=== PATIENT | male | born 1950 | race African-American/Black ===

== ENCOUNTER 2022-09-06 10:08 | Inpatient (IN) | payer OTHER ==
[2022-09-06] MEDS ORDERED: VANCOMYCIN 1 GM in D5W (PRE-DOCKED) 1,000 MG/250 ML IVPB ONE (13:19)
[2022-09-06] MEDS ORDERED: PIPERACILLIN/TAZOB 4.5 GM 4.5 GM in DEXTROSE 5%-WATER 100 ML IVPB ONE (13:19)
[2022-09-06] MEDS ORDERED: CLINDAMYCIN 900 MG PREMIX IVPB 900 MG/50 ML BAG IVPB ONE ×2 (13:19→13:38)
[2022-09-06] MEDS ORDERED: PIPERACILLIN/TAZOB 4.5 GM 4.5 GM/100 ML BAG IVPB ONE (13:38)
[2022-09-06] MEDS ORDERED: VANCOMYCIN/WATER FOR INJ (PEG) 1,000 MG/200 ML BAG IVPB ONE (13:38)
[2022-09-06 13:54] LABS: BASO % 0.4 % (0-2.0); EOS % 0.3 % (0-4.5); HEMOGLOBIN 8.8 GM/dL (11.7-16.9); LYMPH % 19.7 % (8-40); MCH 27.8 pg (25.7-33.7); MCHC 32.6 g/dl (32.0-35.9); MEAN CELL VOLUME 85.1 fl (80-96); MEAN PLT VOLUME 8.1 fl (7.5-11.1); MONO % 8.5 % (3.8-10.2); NEUT % 71.1 % (42.8-82.8); PLATELET COUNT 285 10^3/uL (134-434); RBC 3.18 M/mm3 (4.00-5.60); RDW 13.5 % (11.9-15.9)
[2022-09-06 14:00] LABS: INR 1.08 (0.83-1.09); PROTHROMBIN TIME (PATIENT) 12.4 SEC (9.7-13.0)
[2022-09-06 14:02] LABS: ACTIVATED PTT 26.8 SECONDS (25.2-36.5)
[2022-09-06] MEDS ORDERED: LACTATED RINGERS SOLUTION 1000 ML INFUS.BAG IV ONE (14:04)
[2022-09-06 14:14] LABS: CALCIUM 8.7 mg/dL (8.5-10.1)
[2022-09-06 14:15] LABS: ALBUMIN 2.9 g/dl (3.4-5.0); BLOOD UREA NITROGEN 15.6 mg/dL (7-18)
[2022-09-06 14:25] LABS: BILIRUBIN,TOTAL 0.4 mg/dL (0.2-1); CREATININE 0.6 mg/dL (0.55-1.3); TOT PROT 7.3 g/dl (6.4-8.2)
[2022-09-06] MEDS ORDERED: BISACODYL 10 MG SUPP.RECT PR ONE (17:20)
[2022-09-06 17:57] LABS: EPI CELLS >36 /uL (0-25.1); HYALINE CASTS 1 /uL (0-3.1); URINE APPEARANCE CLEAR; URINE BACTERIA 42 /uL (0-1359); URINE BILIRUBIN NEGATIVE (NEGATIVE); URINE COLOR YELLOW; URINE GLUCOSE (UA) NEGATIVE (NEGATIVE); URINE KETONE NEGATIVE (NEGATIVE); URINE LEUK ESTERASE 2+ (NEGATIVE); URINE NITRITE NEGATIVE (NEGATIVE); URINE PROTEIN 1+ (NEGATIVE); URINE RBC 25 /uL (0-23.9); URINE WBC 370 /uL (0-25.8)
[2022-09-06] MEDS ORDERED: BISACODYL 10 MG SUPP.RECT ONE (18:38)
[2022-09-06] MEDS: D5-1/2NS+20 MEQ KCL - 20 MEQ/1,000 ML INFUS.BAG IV SCH (19:09)
[2022-09-06 19:18] LABS: ERYTHROCYTE SEDIMENTATION RATE 69 mm/hr (0-20)
[2022-09-06] MEDS: HEPARIN NA (PORCINE) 5,000 UNITS/ML 1ML VIAL SQ SCH (23:22)
[2022-09-06] MEDS ORDERED: HEPARIN NA (PORCINE) 5,000 UNITS/ML 1ML VIAL ONE (23:23)
[2022-09-06] MEDS ORDERED: PIPERACILLIN/TAZOB 3.375 GM 3.375 GM/50 ML BAG IVPB ONE (23:24)
[2022-09-06] MEDS: PIPERACILLIN/TAZOB 3.375 GM 3.375 GM in DEXTROSE 5%-WATER - 50 ML IVPB SCH (23:26)
[2022-09-07 03:09] VITALS: BMI 18.6
[2022-09-07] MEDS: PIPERACILLIN/TAZOB 3.375 GM 3.375 GM in DEXTROSE 5%-WATER - 50 ML IVPB SCH ×4 (06:13→21:23)
[2022-09-07 10:35] LABS: INR 1.16 (0.83-1.09); PROTHROMBIN TIME (PATIENT) 13.4 SEC (9.7-13.0)
[2022-09-07 10:37] LABS: BASO % 0.3 % (0-2.0); EOS % 0.8 % (0-4.5); HEMATOCRIT 23.6 % (35.4-49); HEMOGLOBIN 7.9 GM/dL (11.7-16.9); LYMPH % 24.4 % (8-40); MCH 28.3 pg (25.7-33.7); MCHC 33.7 g/dl (32.0-35.9); MEAN CELL VOLUME 84.2 fl (80-96); MEAN PLT VOLUME 8.2 fl (7.5-11.1); MONO % 8.8 % (3.8-10.2); NEUT % 65.7 % (42.8-82.8); PLATELET COUNT 275 10^3/uL (134-434); RDW 13.1 % (11.9-15.9)
[2022-09-07 10:57] LABS: SODIUM 144 mmol/L (136-145)
[2022-09-07 11:07] LABS: ALK PHOS 57 U/L (45-117); CREATININE 0.6 mg/dL (0.55-1.3)
[2022-09-07 11:08] LABS: ALBUMIN 2.6 g/dl (3.4-5.0); BLOOD UREA NITROGEN 9.2 mg/dL (7-18); GLUCOSE,RANDOM 95 mg/dL (74-106); SGOT/AST 18 U/L (15-37); TOTAL IRON BINDING CAPACITY 189 ug/dL (250-450)
[2022-09-07 11:09] LABS: BILIRUBIN,TOTAL 0.5 mg/dL (0.2-1); CALCIUM 8.3 mg/dL (8.5-10.1); CO2 25 mmol/L (21-32); TOT PROT 6.5 g/dl (6.4-8.2)
[2022-09-07 11:11] LABS: IRON SERUM 18 ug/dL (50-175); SGPT/ALT 18 U/L (13-61)
[2022-09-07 12:05] LABS: ANION GAP 9 MMOL/L (8-16); CHLORIDE 110 mmol/L (98-107)
[2022-09-07] MEDS: HEPARIN NA (PORCINE) 5,000 UNITS/ML 1ML VIAL SQ SCH ×2 (12:33→21:24)
[2022-09-07] MEDS ORDERED: IRON SUCROSE INJECTION 200 MG in SODIUM CHLORIDE 90 ML IVPB ONE (13:00)
[2022-09-07] MEDS: POLYETHYLENE GLYCOL (HEALTHYLAX) 3350 17 GM PACKET PO SCH ×2 (13:29→21:24)
[2022-09-07] MEDS: KCL 10 MEQ IVPB 10 MEQ/100 ML INFUS.BAG IVPB SCH ×3 (14:37→16:33)
[2022-09-07] MEDS: VANCOMYCIN/WATER FOR INJ (PEG) 1,000 MG/200 ML BAG IVPB SCH (18:11)
[2022-09-07] MEDS: POTASSIUM CHLORIDE TABS 20 MEQ TABLET.ER (FP) PO SCH (18:17)
[2022-09-07] MEDS: D5-1/2NS+20 MEQ KCL - 20 MEQ/1,000 ML INFUS.BAG IV SCH (18:21)
[2022-09-07] MEDS: CLINDAMYCIN 600MG PREMIX IVPB 600 MG/50 ML BAG IVPB SCH (20:50)
[2022-09-08] MEDS: CLINDAMYCIN 600MG PREMIX IVPB 600 MG/50 ML BAG IVPB SCH ×3 (02:12→18:23)
[2022-09-08] MEDS: D5-1/2NS+20 MEQ KCL - 20 MEQ/1,000 ML INFUS.BAG IV SCH ×2 (02:13→17:45)
[2022-09-08] MEDS: PIPERACILLIN/TAZOB 3.375 GM 3.375 GM in DEXTROSE 5%-WATER - 50 ML IVPB SCH ×3 (02:40→17:21)
[2022-09-08] MEDS: VANCOMYCIN/WATER FOR INJ (PEG) 1,000 MG/200 ML BAG IVPB SCH ×2 (05:59→14:57)
[2022-09-08] MEDS: POLYETHYLENE GLYCOL (HEALTHYLAX) 3350 17 GM PACKET PO SCH ×3 (06:21→21:14)
[2022-09-08] MEDS ORDERED: IRON SUCROSE INJECTION 200 MG in SODIUM CHLORIDE 90 ML IVPB ONE (10:00)
[2022-09-08] MEDS: POTASSIUM CHLORIDE TABS 20 MEQ TABLET.ER (FP) PO SCH (10:21)
[2022-09-08] MEDS: HEPARIN NA (PORCINE) 5,000 UNITS/ML 1ML VIAL SQ SCH ×2 (10:21→21:14)
[2022-09-08 11:31] LABS: CALCIUM 8.8 mg/dL (8.5-10.1)
[2022-09-08 11:32] LABS: ALBUMIN 2.8 g/dl (3.4-5.0); BLOOD UREA NITROGEN 6.3 mg/dL (7-18); MAGNESIUM 1.9 mg/dL (1.8-2.4)
[2022-09-08 11:34] LABS: CREATININE 0.7 mg/dL (0.55-1.3)
[2022-09-08 11:36] LABS: BILIRUBIN,TOTAL 0.4 mg/dL (0.2-1); TOT PROT 7.4 g/dl (6.4-8.2)
[2022-09-08] MEDS: LOSARTAN POTASSIUM 25 MG TABLET PO SCH (14:40)
[2022-09-09] MEDS: D5-1/2NS+20 MEQ KCL - 20 MEQ/1,000 ML INFUS.BAG IV SCH (00:22)
[2022-09-09] MEDS: PIPERACILLIN/TAZOB 3.375 GM 3.375 GM in DEXTROSE 5%-WATER - 50 ML IVPB SCH ×4 (01:20→17:26)
[2022-09-09] MEDS: CLINDAMYCIN 600MG PREMIX IVPB 600 MG/50 ML BAG IVPB SCH ×3 (02:14→17:26)
[2022-09-09] MEDS: VANCOMYCIN/WATER FOR INJ (PEG) 1,000 MG/200 ML BAG IVPB SCH ×2 (02:59→17:26)
[2022-09-09] MEDS: POLYETHYLENE GLYCOL (HEALTHYLAX) 3350 17 GM PACKET PO SCH ×3 (05:59→21:21)
[2022-09-09] MEDS ORDERED: IRON SUCROSE INJECTION 200 MG in SODIUM CHLORIDE 90 ML IVPB ONE (10:00)
[2022-09-09] MEDS: ASCORBIC ACID 500 MG TABLET (FP) PO SCH ×2 (10:17→21:21)
[2022-09-09] MEDS: HEPARIN NA (PORCINE) 5,000 UNITS/ML 1ML VIAL SQ SCH ×2 (10:18→21:21)
[2022-09-09] MEDS: ZINC SULFATE 220 MG CAPSULE (FP) PO SCH (10:18)
[2022-09-09] MEDS: POTASSIUM CHLORIDE TABS 20 MEQ TABLET.ER (FP) PO SCH (10:18)
[2022-09-09] MEDS: AMINO ACIDS/PROTEIN HYDROLYS 30 ML LIQUID.PKT PO SCH ×2 (10:18→17:32)
[2022-09-09] MEDS: MULTIVITAMINS (DAILY MVI) TABLET (FP) PO SCH (10:18)
[2022-09-09 12:38] LABS: BASO % 0.8 % (0-2.0); EOS % 1.3 % (0-4.5); HEMATOCRIT 30.1 % (35.4-49); HEMOGLOBIN 9.5 GM/dL (11.7-16.9); LYMPH % 36.4 % (8-40); MCHC 31.6 g/dl (32.0-35.9); MEAN CELL VOLUME 85.3 fl (80-96); MEAN PLT VOLUME 10.2 fl (7.5-11.1); MONO % 10.3 % (3.8-10.2); NEUT % 51.2 % (42.8-82.8); PLATELET COUNT 227 10^3/uL (134-434); RBC 3.53 M/mm3 (4.00-5.60); RDW 13.5 % (11.9-15.9); WHITE BLOOD COUNT 6.6 K/mm3 (4.0-10.0)
[2022-09-09 12:55] LABS: CALCIUM 8.9 mg/dL (8.5-10.1); MAGNESIUM 1.8 mg/dL (1.8-2.4)
[2022-09-09 12:56] LABS: ALBUMIN 2.8 g/dl (3.4-5.0)
[2022-09-09 12:58] LABS: CREATININE 0.7 mg/dL (0.55-1.3)
[2022-09-09 13:00] LABS: BILIRUBIN,TOTAL 0.4 mg/dL (0.2-1); TOT PROT 7.4 g/dl (6.4-8.2)
[2022-09-09] MEDS: LOSARTAN POTASSIUM 25 MG TABLET PO SCH (15:36)
[2022-09-09] MEDS ORDERED: DEXTROSE 5%-0.45% SALINE 1,000 ML IV SCH (17:00)
[2022-09-10] MEDS: CLINDAMYCIN 600MG PREMIX IVPB 600 MG/50 ML BAG IVPB SCH ×3 (01:01→16:59)
[2022-09-10] MEDS: PIPERACILLIN/TAZOB 3.375 GM 3.375 GM in DEXTROSE 5%-WATER - 50 ML IVPB SCH ×3 (01:40→17:00)
[2022-09-10] MEDS: VANCOMYCIN/WATER FOR INJ (PEG) 1,000 MG/200 ML BAG IVPB SCH ×2 (04:12→16:59)
[2022-09-10] MEDS: POLYETHYLENE GLYCOL (HEALTHYLAX) 3350 17 GM PACKET PO SCH ×3 (05:14→21:22)
[2022-09-10] MEDS: AMINO ACIDS/PROTEIN HYDROLYS 30 ML LIQUID.PKT PO SCH ×2 (08:07→16:59)
[2022-09-10] MEDS ORDERED: MINERAL OIL ENEMA 133 ML ENEMA RC ONE (09:04)
[2022-09-10 10:02] LABS: BASO % 0.6 % (0-2.0); EOS % 1.8 % (0-4.5); HEMATOCRIT 29.5 % (35.4-49); HEMOGLOBIN 9.5 GM/dL (11.7-16.9); LYMPH % 36.5 % (8-40); MCH 27.3 pg (25.7-33.7); MCHC 32.2 g/dl (32.0-35.9); MEAN CELL VOLUME 84.9 fl (80-96); MEAN PLT VOLUME 8.3 fl (7.5-11.1); MONO % 8.8 % (3.8-10.2); NEUT % 52.3 % (42.8-82.8); PLATELET COUNT 357 10^3/uL (134-434); RBC 3.48 M/mm3 (4.00-5.60); RDW 13.7 % (11.9-15.9); WHITE BLOOD COUNT 7.4 K/mm3 (4.0-10.0)
[2022-09-10] MEDS: MULTIVITAMINS (DAILY MVI) TABLET (FP) PO SCH (13:06)
[2022-09-10] MEDS: ZINC SULFATE 220 MG CAPSULE (FP) PO SCH (13:06)
[2022-09-10] MEDS: LOSARTAN POTASSIUM 25 MG TABLET PO SCH (13:06)
[2022-09-10] MEDS: ASCORBIC ACID 500 MG TABLET (FP) PO SCH ×2 (13:06→21:22)
[2022-09-10] MEDS: HEPARIN NA (PORCINE) 5,000 UNITS/ML 1ML VIAL SQ SCH ×2 (13:06→21:22)
[2022-09-10] MEDS: DEXTROSE 5%-0.45% SALINE 1,000 ML IV SCH (13:12)
[2022-09-11] MEDS: CLINDAMYCIN 600MG PREMIX IVPB 600 MG/50 ML BAG IVPB SCH ×2 (02:04→10:45)
[2022-09-11] MEDS: PIPERACILLIN/TAZOB 3.375 GM 3.375 GM in DEXTROSE 5%-WATER - 50 ML IVPB SCH ×3 (02:38→18:06)
[2022-09-11] MEDS: VANCOMYCIN/WATER FOR INJ (PEG) 1,000 MG/200 ML BAG IVPB SCH ×2 (03:22→16:23)
[2022-09-11] MEDS: POLYETHYLENE GLYCOL (HEALTHYLAX) 3350 17 GM PACKET PO SCH ×3 (05:33→22:29)
[2022-09-11] MEDS: MULTIVITAMINS (DAILY MVI) TABLET (FP) PO SCH (10:45)
[2022-09-11] MEDS: HEPARIN NA (PORCINE) 5,000 UNITS/ML 1ML VIAL SQ SCH ×2 (10:45→22:29)
[2022-09-11] MEDS: ZINC SULFATE 220 MG CAPSULE (FP) PO SCH (10:45)
[2022-09-11] MEDS: AMINO ACIDS/PROTEIN HYDROLYS 30 ML LIQUID.PKT PO SCH ×2 (10:45→18:07)
[2022-09-11] MEDS: ASCORBIC ACID 500 MG TABLET (FP) PO SCH ×2 (10:46→22:29)
[2022-09-11] MEDS: LOSARTAN POTASSIUM 25 MG TABLET PO SCH (10:46)
[2022-09-11 12:07] LABS: HEMATOCRIT 26.8 % (35.4-49); HEMOGLOBIN 8.8 GM/dL (11.7-16.9); MCH 28.1 pg (25.7-33.7); MCHC 32.9 g/dl (32.0-35.9); MEAN CELL VOLUME 85.3 fl (80-96); MEAN PLT VOLUME 9.2 fl (7.5-11.1); PLATELET COUNT 298 10^3/uL (134-434); RBC 3.14 M/mm3 (4.00-5.60); RDW 14.2 % (11.9-15.9)
[2022-09-11 12:38] LABS: ALBUMIN 2.6 g/dl (3.4-5.0); BLOOD UREA NITROGEN 9.7 mg/dL (7-18); CALCIUM 8.8 mg/dL (8.5-10.1)
[2022-09-11 12:42] LABS: CREATININE 0.7 mg/dL (0.55-1.3)
[2022-09-11 12:43] LABS: BILIRUBIN,TOTAL 0.5 mg/dL (0.2-1)
[2022-09-11 12:45] LABS: ANISOCYTOSIS 0; HELMET CELLS 0; HOWELL-JOLLY BODIES 0; MACROCYTOSIS 0; OVALOCYTE 0; ROULEAU 0; SICKELED CELLS 0; TARGET CELLS 0; TEAR DROP CELLS 0; TOXIC GRANULATION 0
[2022-09-11] MEDS: DEXTROSE 5%-0.45% SALINE 1,000 ML IV SCH (14:30)
[2022-09-11] MEDS: LINEZOLID 600 MG PREMIX BAG 600 MG in PREMIX 300 IVPB SCH (18:56)
[2022-09-12] MEDS: PIPERACILLIN/TAZOB 3.375 GM 3.375 GM in DEXTROSE 5%-WATER - 50 ML IVPB SCH ×3 (02:07→17:16)
[2022-09-12] MEDS: LINEZOLID 600 MG PREMIX BAG 600 MG in PREMIX 300 IVPB SCH ×2 (05:33→16:45)
[2022-09-12] MEDS: POLYETHYLENE GLYCOL (HEALTHYLAX) 3350 17 GM PACKET PO SCH ×3 (05:33→22:26)
[2022-09-12] MEDS: ZINC SULFATE 220 MG CAPSULE (FP) PO SCH (10:14)
[2022-09-12] MEDS: HEPARIN NA (PORCINE) 5,000 UNITS/ML 1ML VIAL SQ SCH ×2 (10:14→22:25)
[2022-09-12] MEDS: MULTIVITAMINS (DAILY MVI) TABLET (FP) PO SCH (10:14)
[2022-09-12] MEDS: ASCORBIC ACID 500 MG TABLET (FP) PO SCH ×2 (10:14→22:25)
[2022-09-12] MEDS: LOSARTAN POTASSIUM 25 MG TABLET PO SCH (10:14)
[2022-09-12] MEDS: AMINO ACIDS/PROTEIN HYDROLYS 30 ML LIQUID.PKT PO SCH ×2 (10:14→16:45)
[2022-09-12 10:33] LABS: CALCIUM 8.9 mg/dL (8.5-10.1)
[2022-09-12 10:34] LABS: ALBUMIN 2.8 g/dl (3.4-5.0); BLOOD UREA NITROGEN 12.4 mg/dL (7-18)
[2022-09-12 10:37] LABS: CREATININE 0.7 mg/dL (0.55-1.3)
[2022-09-12 10:38] LABS: TOT PROT 6.9 g/dl (6.4-8.2)
[2022-09-12 10:39] LABS: BILIRUBIN,TOTAL 0.4 mg/dL (0.2-1)
[2022-09-12 11:35] LABS: HEMATOCRIT 26.8 % (35.4-49); HEMOGLOBIN 8.6 GM/dL (11.7-16.9); MCH 27.5 pg (25.7-33.7); MCHC 32.2 g/dl (32.0-35.9); MEAN CELL VOLUME 85.4 fl (80-96); MEAN PLT VOLUME 9.1 fl (7.5-11.1); PLATELET COUNT 332 10^3/uL (134-434); RBC 3.13 M/mm3 (4.00-5.60); WHITE BLOOD COUNT 8.6 K/mm3 (4.0-10.0)
[2022-09-12] MEDS: COLLAGENASE CLOSTRIDIUM HIST. 30 GRAMS TUBE TP SCH (20:00)
[2022-09-13] MEDS: PIPERACILLIN/TAZOB 3.375 GM 3.375 GM in DEXTROSE 5%-WATER - 50 ML IVPB SCH ×3 (01:56→17:05)
[2022-09-13] MEDS: LINEZOLID 600 MG PREMIX BAG 600 MG in PREMIX 300 IVPB SCH ×2 (06:01→18:43)
[2022-09-13] MEDS: POLYETHYLENE GLYCOL (HEALTHYLAX) 3350 17 GM PACKET PO SCH ×3 (06:02→22:25)
[2022-09-13] MEDS: AMINO ACIDS/PROTEIN HYDROLYS 30 ML LIQUID.PKT PO SCH ×2 (09:24→17:05)
[2022-09-13] MEDS: LOSARTAN POTASSIUM 25 MG TABLET PO SCH (09:25)
[2022-09-13] MEDS: MULTIVITAMINS (DAILY MVI) TABLET (FP) PO SCH (09:25)
[2022-09-13] MEDS: ZINC SULFATE 220 MG CAPSULE (FP) PO SCH (09:25)
[2022-09-13] MEDS: ASCORBIC ACID 500 MG TABLET (FP) PO SCH ×2 (09:26→22:25)
[2022-09-13] MEDS: HEPARIN NA (PORCINE) 5,000 UNITS/ML 1ML VIAL SQ SCH (09:28)
[2022-09-13] MEDS: COLLAGENASE CLOSTRIDIUM HIST. 30 GRAMS TUBE TP SCH (15:12)
[2022-09-14] MEDS: ACETAMINOPHEN 325 MG TABLET (FP) PO PRN (00:51)
[2022-09-14] MEDS: PIPERACILLIN/TAZOB 3.375 GM 3.375 GM in DEXTROSE 5%-WATER - 50 ML IVPB SCH ×2 (02:04→11:03)
[2022-09-14] MEDS: LINEZOLID 600 MG PREMIX BAG 600 MG in PREMIX 300 IVPB SCH (05:31)
[2022-09-14] MEDS: POLYETHYLENE GLYCOL (HEALTHYLAX) 3350 17 GM PACKET PO SCH ×3 (05:31→23:08)
[2022-09-14 10:14] LABS: HEMATOCRIT 27.5 % (35.4-49); MCH 28.4 pg (25.7-33.7); MCHC 32.9 g/dl (32.0-35.9); MEAN CELL VOLUME 86.4 fl (80-96); MEAN PLT VOLUME 8.6 fl (7.5-11.1); PLATELET COUNT 310 10^3/uL (134-434); RBC 3.18 M/mm3 (4.00-5.60); RDW 14.7 % (11.9-15.9); WHITE BLOOD COUNT 7.8 K/mm3 (4.0-10.0)
[2022-09-14] MEDS: LOSARTAN POTASSIUM 25 MG TABLET PO SCH (11:01)
[2022-09-14] MEDS: ASCORBIC ACID 500 MG TABLET (FP) PO SCH ×2 (11:01→23:08)
[2022-09-14] MEDS: MULTIVITAMINS (DAILY MVI) TABLET (FP) PO SCH (11:01)
[2022-09-14] MEDS: COLLAGENASE CLOSTRIDIUM HIST. 30 GRAMS TUBE TP SCH (11:01)
[2022-09-14] MEDS: ZINC SULFATE 220 MG CAPSULE (FP) PO SCH (11:01)
[2022-09-14] MEDS: AMINO ACIDS/PROTEIN HYDROLYS 30 ML LIQUID.PKT PO SCH ×2 (11:01→17:14)
[2022-09-14 11:09] LABS: ALBUMIN 3.1 g/dl (3.4-5.0); CALCIUM 9.1 mg/dL (8.5-10.1)
[2022-09-14 11:13] LABS: BILIRUBIN,TOTAL 0.4 mg/dL (0.2-1); BLOOD UREA NITROGEN 15.2 mg/dL (7-18); TOT PROT 7.6 g/dl (6.4-8.2)
[2022-09-14 11:16] LABS: CREATININE 0.9 mg/dL (0.55-1.3)
[2022-09-14] MEDS: LINEZOLID 600 MG TABLET (RESTRICTED TO ID) PO SCH (23:08)
[2022-09-15] MEDS: POLYETHYLENE GLYCOL (HEALTHYLAX) 3350 17 GM PACKET PO SCH ×3 (08:08→21:15)
[2022-09-15] MEDS: AMINO ACIDS/PROTEIN HYDROLYS 30 ML LIQUID.PKT PO SCH ×2 (10:08→16:38)
[2022-09-15] MEDS: MULTIVITAMINS (DAILY MVI) TABLET (FP) PO SCH (10:08)
[2022-09-15] MEDS: LOSARTAN POTASSIUM 25 MG TABLET PO SCH (10:08)
[2022-09-15] MEDS: ZINC SULFATE 220 MG CAPSULE (FP) PO SCH (10:08)
[2022-09-15] MEDS: LINEZOLID 600 MG TABLET (RESTRICTED TO ID) PO SCH ×2 (10:08→21:15)
[2022-09-15] MEDS: ASCORBIC ACID 500 MG TABLET (FP) PO SCH ×2 (10:08→21:12)
[2022-09-15] MEDS: COLLAGENASE CLOSTRIDIUM HIST. 30 GRAMS TUBE TP SCH (11:30)
[2022-09-15] MEDS: ACETAMINOPHEN 325 MG TABLET (FP) PO PRN (21:12)
[2022-09-16] MEDS: POLYETHYLENE GLYCOL (HEALTHYLAX) 3350 17 GM PACKET PO SCH ×3 (06:04→21:36)
[2022-09-16] MEDS: ACETAMINOPHEN 325 MG TABLET (FP) PO PRN ×2 (06:04→21:37)
[2022-09-16] MEDS: MULTIVITAMINS (DAILY MVI) TABLET (FP) PO SCH (09:04)
[2022-09-16] MEDS: ASCORBIC ACID 500 MG TABLET (FP) PO SCH ×2 (09:04→21:37)
[2022-09-16] MEDS: ZINC SULFATE 220 MG CAPSULE (FP) PO SCH (09:04)
[2022-09-16] MEDS: LINEZOLID 600 MG TABLET (RESTRICTED TO ID) PO SCH ×2 (09:04→21:37)
[2022-09-16] MEDS: AMINO ACIDS/PROTEIN HYDROLYS 30 ML LIQUID.PKT PO SCH ×2 (09:04→16:40)
[2022-09-16] MEDS: LOSARTAN POTASSIUM 25 MG TABLET PO SCH (09:05)
[2022-09-16] MEDS: COLLAGENASE CLOSTRIDIUM HIST. 30 GRAMS TUBE TP SCH (12:07)
[2022-09-16] MEDS: MINERAL OIL/PET HY-PHL TOPICAL OINTMENT 454 GM JAR TP SCH (17:37)
[2022-09-17] MEDS: POLYETHYLENE GLYCOL (HEALTHYLAX) 3350 17 GM PACKET PO SCH ×2 (05:51→13:36)
[2022-09-17 07:38] VITALS: RESP 20
[2022-09-17] MEDS: AMINO ACIDS/PROTEIN HYDROLYS 30 ML LIQUID.PKT PO SCH ×2 (09:02→17:16)
[2022-09-17] MEDS: MULTIVITAMINS (DAILY MVI) TABLET (FP) PO SCH (09:02)
[2022-09-17] MEDS: LINEZOLID 600 MG TABLET (RESTRICTED TO ID) PO SCH (09:03)
[2022-09-17] MEDS: MINERAL OIL/PET HY-PHL TOPICAL OINTMENT 454 GM JAR TP SCH (09:03)
[2022-09-17] MEDS: LOSARTAN POTASSIUM 25 MG TABLET PO SCH (09:03)
[2022-09-17] MEDS: ZINC SULFATE 220 MG CAPSULE (FP) PO SCH (09:03)
[2022-09-17] MEDS: COLLAGENASE CLOSTRIDIUM HIST. 30 GRAMS TUBE TP SCH (09:03)
[2022-09-17] MEDS: ASCORBIC ACID 500 MG TABLET (FP) PO SCH (09:03)
[2022-09-17 10:10] LABS: HEMATOCRIT 26.5 % (35.4-49); HEMOGLOBIN 8.4 GM/dL (11.7-16.9); MCHC 31.9 g/dl (32.0-35.9); MEAN PLT VOLUME 8.6 fl (7.5-11.1); PLATELET COUNT 276 10^3/uL (134-434); RBC 3.01 M/mm3 (4.00-5.60); RDW 15.8 % (11.9-15.9); WHITE BLOOD COUNT 5.8 K/mm3 (4.0-10.0)
[2022-09-17 11:27] LABS: CALCIUM 8.9 mg/dL (8.5-10.1)
[2022-09-17 11:28] LABS: ALBUMIN 2.8 g/dl (3.4-5.0); MAGNESIUM 2.3 mg/dL (1.8-2.4)
[2022-09-17 11:31] LABS: CREATININE 0.7 mg/dL (0.55-1.3)
[2022-09-17 11:32] LABS: BILIRUBIN,TOTAL 0.5 mg/dL (0.2-1)
[2022-09-17 11:36] LABS: BLOOD UREA NITROGEN 12.7 mg/dL (7-18)
[2022-09-17 15:28] VITALS: BP 106/61; PULSE 83; TEMP 99
== END 2022-09-17 21:10 | DRG 689 ==
LOC: JER 10:08 → JERBED 16:56 → J5S 09-07 00:42 → J8W 09-11 15:11
PROVIDERS: ADMIT Family Medicine; ATTEND Family Medicine
DX: N39.0 Urinary tract infection, site not specified (principal); L89.154 Pressure ulcer of sacral region, stage 4; R53.2 Functional quadriplegia; J90 Pleural effusion, not elsewhere classified; L03.116 Cellulitis of left lower limb; J98.11 Atelectasis; N99.512 Cystostomy malfunction; E44.0 Moderate protein-calorie malnutrition; Z68.1 Body mass index [BMI] 19.9 or less, adult; I25.10 Atherosclerotic heart disease of native coronary artery without angina pectoris; F03.90 Unspecified dementia, unspecified severity, without behavioral disturbance, psychotic disturbance, mood disturbance, and anxiety; G40.909 Epilepsy, unspecified, not intractable, without status epilepticus; H54.8 Legal blindness, as defined in USA; N45.1 Epididymitis; E87.6 Hypokalemia; K56.41 Fecal impaction; N50.89 Other specified disorders of the male genital organs; E78.5 Hyperlipidemia, unspecified; I12.9 Hypertensive chronic kidney disease with stage 1 through stage 4 chronic kidney disease, or unspecified chronic kidney disease; E11.22 Type 2 diabetes mellitus with diabetic chronic kidney disease; N18.9 Chronic kidney disease, unspecified; D64.9 Anemia, unspecified; R14.0 Abdominal distension (gaseous)
CPT/HCPCS: 0241U-QW; 36415; 71045-TC-FY; 71250-TC; 74176-TC; 76870-TC; 80048; 80053; 81003; 82607; 82728; 82746; 82962; 83540; 83550; 83605; 83735; 84439; 84443; 85025; 85027; 85610; 85651; 85730; 86140; 86850; 86900; 86901; 87040; 87086; 87186; 93005; 93010; 97161-GP; 99291; C9803-CS; J1644; J1756; U0003; U0005

== ENCOUNTER 2022-10-31 01:51 | Inpatient (IN) | payer OTHER ==
[2022-10-31 03:45] LABS: BASO % 0.7 % (0-2.0); EOS % 2.4 % (0-4.5); HEMATOCRIT 35.5 % (35.4-49); HEMOGLOBIN 11.3 GM/dL (11.7-16.9); LYMPH % 29.2 % (8-40); MCH 27.6 pg (25.7-33.7); MCHC 31.7 g/dl (32.0-35.9); MEAN CELL VOLUME 86.9 fl (80-96); MEAN PLT VOLUME 9.3 fl (7.5-11.1); NEUT % 59.7 % (42.8-82.8); PLATELET COUNT 284 10^3/uL (134-434); RBC 4.09 M/mm3 (4.00-5.60); RDW 14.7 % (11.9-15.9); WHITE BLOOD COUNT 7.2 K/mm3 (4.0-10.0)
[2022-10-31 04:10] LABS: CHLORIDE 107 mmol/L (98-107); SODIUM 139 mmol/L (136-145)
[2022-10-31 04:12] LABS: BLOOD UREA NITROGEN 19.9 mg/dL (7-18); CALCIUM 8.8 mg/dL (8.5-10.1); CO2 23 mmol/L (21-32); GLUCOSE,RANDOM 103 mg/dL (74-106); LIPASE 100 U/L (73-393)
[2022-10-31 04:15] LABS: CREATININE 0.8 mg/dL (0.55-1.3); SGOT/AST 82 U/L (15-37)
[2022-10-31 04:17] LABS: BILIRUBIN,TOTAL 0.2 mg/dL (0.2-1)
[2022-10-31 04:18] LABS: ALK PHOS 87 U/L (45-117)
[2022-10-31 04:54] LABS: ANION GAP 8 MMOL/L (8-16); SGPT/ALT 22 U/L (13-61)
[2022-10-31 06:51] LABS: ALBUMIN 3.3 g/dl (3.4-5.0); BLOOD UREA NITROGEN 20.2 mg/dL (7-18)
[2022-10-31] MEDS ORDERED: PIPERACILLIN/TAZOB 4.5 GM 4.5 GM in DEXTROSE 5%-WATER 100 ML IVPB ONE (06:52)
[2022-10-31] MEDS ORDERED: VANCOMYCIN 1 GM in D5W (PRE-DOCKED) 1,000 MG/250 ML IVPB ONE (06:52)
[2022-10-31 06:54] LABS: CREATININE 0.7 mg/dL (0.55-1.3)
[2022-10-31 06:56] LABS: BILIRUBIN,TOTAL 0.4 mg/dL (0.2-1); TOT PROT 7.7 g/dl (6.4-8.2)
[2022-10-31] MEDS ORDERED: VANCOMYCIN/WATER FOR INJ (PEG) 1,000 MG/200 ML BAG IVPB ONE (08:28)
[2022-10-31] MEDS ORDERED: PIPERACILLIN/TAZOB 4.5 GM 4.5 GM/100 ML BAG IVPB ONE (08:28)
[2022-10-31] MEDS ORDERED: LOSARTAN POTASSIUM 25 MG TABLET PO SCH (10:00)
[2022-10-31] MEDS: ASCORBIC ACID 500 MG TABLET (FP) PO SCH ×2 (12:45→21:39)
[2022-10-31] MEDS: HEPARIN NA (PORCINE) 5,000 UNITS/ML 1ML VIAL SQ SCH ×2 (15:30→21:39)
[2022-10-31] MEDS: POLYETHYLENE GLYCOL (HEALTHYLAX) 3350 17 GM PACKET PO SCH ×2 (15:35→21:39)
[2022-10-31] MEDS: AMINO ACIDS/PROTEIN HYDROLYS 30 ML LIQUID.PKT PO SCH (17:30)
[2022-10-31] MEDS: LINEZOLID 600 MG PREMIX BAG 600 MG/300 ML BAG IVPB SCH (17:31)
[2022-10-31] MEDS ORDERED: PIPERACILLIN/TAZOB 3.375 GM 3.375 GM in DEXTROSE 5%-WATER - 50 ML IVPB SCH (18:00)
[2022-10-31 18:26] VITALS: BMI 17.7
[2022-11-01] MEDS: LINEZOLID 600 MG PREMIX BAG 600 MG/300 ML BAG IVPB SCH ×2 (02:48→15:10)
[2022-11-01] MEDS: HEPARIN NA (PORCINE) 5,000 UNITS/ML 1ML VIAL SQ SCH ×3 (05:44→21:55)
[2022-11-01] MEDS: POLYETHYLENE GLYCOL (HEALTHYLAX) 3350 17 GM PACKET PO SCH ×3 (05:44→22:14)
[2022-11-01] MEDS: AMINO ACIDS/PROTEIN HYDROLYS 30 ML LIQUID.PKT PO SCH ×2 (09:00→17:48)
[2022-11-01 09:35] LABS: BASO % 0.7 % (0-2.0); EOS % 2.6 % (0-4.5); HEMOGLOBIN 10.5 GM/dL (11.7-16.9); LYMPH % 44.8 % (8-40); MCH 27.7 pg (25.7-33.7); MCHC 31.8 g/dl (32.0-35.9); MEAN CELL VOLUME 87.1 fl (80-96); NEUT % 44.9 % (42.8-82.8); PLATELET COUNT 294 10^3/uL (134-434); RBC 3.79 M/mm3 (4.00-5.60); RDW 14.5 % (11.9-15.9); WHITE BLOOD COUNT 5.8 K/mm3 (4.0-10.0)
[2022-11-01 09:56] LABS: CALCIUM 9.1 mg/dL (8.5-10.1)
[2022-11-01 09:57] LABS: ALBUMIN 3.3 g/dl (3.4-5.0); BLOOD UREA NITROGEN 17.9 mg/dL (7-18)
[2022-11-01 10:01] LABS: CREATININE 0.8 mg/dL (0.55-1.3)
[2022-11-01 10:02] LABS: BILIRUBIN,TOTAL 0.4 mg/dL (0.2-1); TOT PROT 7.6 g/dl (6.4-8.2)
[2022-11-01] MEDS: LOSARTAN POTASSIUM 50 MG TABLET PO SCH (11:49)
[2022-11-01] MEDS: ASCORBIC ACID 500 MG TABLET (FP) PO SCH ×2 (11:49→21:55)
[2022-11-01] MEDS: COLLAGENASE CLOSTRIDIUM HIST. 30 GRAMS TUBE TP SCH (15:10)
[2022-11-01] MEDS: PIPERACILLIN/TAZOB 3.375 GM 3.375 GM in DEXTROSE 5%-WATER - 50 ML IVPB SCH (17:48)
[2022-11-02] MEDS: PIPERACILLIN/TAZOB 3.375 GM 3.375 GM in DEXTROSE 5%-WATER - 50 ML IVPB SCH ×3 (02:20→17:16)
[2022-11-02] MEDS: LINEZOLID 600 MG PREMIX BAG 600 MG/300 ML BAG IVPB SCH ×2 (03:08→15:12)
[2022-11-02] MEDS: POLYETHYLENE GLYCOL (HEALTHYLAX) 3350 17 GM PACKET PO SCH ×3 (06:24→22:21)
[2022-11-02] MEDS: HEPARIN NA (PORCINE) 5,000 UNITS/ML 1ML VIAL SQ SCH ×3 (06:24→22:21)
[2022-11-02] MEDS: ASCORBIC ACID 500 MG TABLET (FP) PO SCH ×2 (09:25→22:20)
[2022-11-02] MEDS: AMINO ACIDS/PROTEIN HYDROLYS 30 ML LIQUID.PKT PO SCH ×2 (09:25→17:16)
[2022-11-02] MEDS: LOSARTAN POTASSIUM 50 MG TABLET PO SCH (09:25)
[2022-11-02] MEDS: COLLAGENASE CLOSTRIDIUM HIST. 30 GRAMS TUBE TP SCH (09:26)
[2022-11-03] MEDS: PIPERACILLIN/TAZOB 3.375 GM 3.375 GM in DEXTROSE 5%-WATER - 50 ML IVPB SCH ×3 (02:08→18:24)
[2022-11-03] MEDS: LINEZOLID 600 MG PREMIX BAG 600 MG/300 ML BAG IVPB SCH ×2 (03:46→15:20)
[2022-11-03] MEDS: ACETAMINOPHEN 325 MG TABLET (FP) PO PRN ×2 (06:50→11:52)
[2022-11-03] MEDS: POLYETHYLENE GLYCOL (HEALTHYLAX) 3350 17 GM PACKET PO SCH ×3 (06:51→22:53)
[2022-11-03] MEDS: HEPARIN NA (PORCINE) 5,000 UNITS/ML 1ML VIAL SQ SCH ×3 (06:51→22:52)
[2022-11-03] MEDS: AMINO ACIDS/PROTEIN HYDROLYS 30 ML LIQUID.PKT PO SCH ×2 (09:57→18:24)
[2022-11-03] MEDS: ASCORBIC ACID 500 MG TABLET (FP) PO SCH ×2 (09:57→22:52)
[2022-11-03] MEDS: LOSARTAN POTASSIUM 50 MG TABLET PO SCH (09:57)
[2022-11-03] MEDS: COLLAGENASE CLOSTRIDIUM HIST. 30 GRAMS TUBE TP SCH (09:58)
[2022-11-04] MEDS: PIPERACILLIN/TAZOB 3.375 GM 3.375 GM in DEXTROSE 5%-WATER - 50 ML IVPB SCH ×3 (01:46→17:41)
[2022-11-04] MEDS: LINEZOLID 600 MG PREMIX BAG 600 MG/300 ML BAG IVPB SCH ×2 (03:51→16:24)
[2022-11-04] MEDS: POLYETHYLENE GLYCOL (HEALTHYLAX) 3350 17 GM PACKET PO SCH ×3 (07:14→21:27)
[2022-11-04] MEDS: HEPARIN NA (PORCINE) 5,000 UNITS/ML 1ML VIAL SQ SCH ×3 (07:14→21:27)
[2022-11-04] MEDS: AMINO ACIDS/PROTEIN HYDROLYS 30 ML LIQUID.PKT PO SCH ×2 (09:16→17:41)
[2022-11-04] MEDS: LOSARTAN POTASSIUM 50 MG TABLET PO SCH (09:18)
[2022-11-04] MEDS: COLLAGENASE CLOSTRIDIUM HIST. 30 GRAMS TUBE TP SCH (09:18)
[2022-11-04] MEDS: ASCORBIC ACID 500 MG TABLET (FP) PO SCH ×2 (09:18→21:27)
[2022-11-05] MEDS: PIPERACILLIN/TAZOB 3.375 GM 3.375 GM in DEXTROSE 5%-WATER - 50 ML IVPB SCH ×3 (01:26→18:52)
[2022-11-05] MEDS: LINEZOLID 600 MG PREMIX BAG 600 MG/300 ML BAG IVPB SCH ×2 (03:43→15:10)
[2022-11-05] MEDS: HEPARIN NA (PORCINE) 5,000 UNITS/ML 1ML VIAL SQ SCH ×3 (06:31→21:43)
[2022-11-05] MEDS: POLYETHYLENE GLYCOL (HEALTHYLAX) 3350 17 GM PACKET PO SCH ×3 (06:31→21:43)
[2022-11-05] MEDS: LOSARTAN POTASSIUM 50 MG TABLET PO SCH (11:49)
[2022-11-05] MEDS: COLLAGENASE CLOSTRIDIUM HIST. 30 GRAMS TUBE TP SCH (11:50)
[2022-11-05] MEDS: ASCORBIC ACID 500 MG TABLET (FP) PO SCH ×2 (11:50→21:46)
[2022-11-05] MEDS: AMINO ACIDS/PROTEIN HYDROLYS 30 ML LIQUID.PKT PO SCH ×2 (11:50→18:53)
[2022-11-06] MEDS: PIPERACILLIN/TAZOB 3.375 GM 3.375 GM in DEXTROSE 5%-WATER - 50 ML IVPB SCH ×3 (01:18→17:02)
[2022-11-06] MEDS: LINEZOLID 600 MG PREMIX BAG 600 MG/300 ML BAG IVPB SCH ×2 (03:01→14:50)
[2022-11-06] MEDS: POLYETHYLENE GLYCOL (HEALTHYLAX) 3350 17 GM PACKET PO SCH ×3 (05:40→21:24)
[2022-11-06] MEDS: HEPARIN NA (PORCINE) 5,000 UNITS/ML 1ML VIAL SQ SCH ×3 (05:41→21:25)
[2022-11-06] MEDS: LOSARTAN POTASSIUM 50 MG TABLET PO SCH (09:09)
[2022-11-06] MEDS: AMINO ACIDS/PROTEIN HYDROLYS 30 ML LIQUID.PKT PO SCH ×2 (09:09→17:03)
[2022-11-06] MEDS: ASCORBIC ACID 500 MG TABLET (FP) PO SCH ×2 (09:09→21:25)
[2022-11-06] MEDS: COLLAGENASE CLOSTRIDIUM HIST. 30 GRAMS TUBE TP SCH (14:51)
[2022-11-07] MEDS: PIPERACILLIN/TAZOB 3.375 GM 3.375 GM in DEXTROSE 5%-WATER - 50 ML IVPB SCH ×3 (02:01→18:15)
[2022-11-07] MEDS: LINEZOLID 600 MG PREMIX BAG 600 MG/300 ML BAG IVPB SCH (02:54)
[2022-11-07] MEDS: POLYETHYLENE GLYCOL (HEALTHYLAX) 3350 17 GM PACKET PO SCH ×3 (06:14→22:56)
[2022-11-07] MEDS: HEPARIN NA (PORCINE) 5,000 UNITS/ML 1ML VIAL SQ SCH (06:14)
[2022-11-07] MEDS: ASCORBIC ACID 500 MG TABLET (FP) PO SCH ×2 (09:34→22:56)
[2022-11-07] MEDS: AMINO ACIDS/PROTEIN HYDROLYS 30 ML LIQUID.PKT PO SCH ×2 (09:34→18:15)
[2022-11-07] MEDS: LOSARTAN POTASSIUM 50 MG TABLET PO SCH (09:34)
[2022-11-07] MEDS: COLLAGENASE CLOSTRIDIUM HIST. 30 GRAMS TUBE TP SCH (09:35)
[2022-11-07 10:50] LABS: HEMATOCRIT 33.8 % (35.4-49); MCH 28.4 pg (25.7-33.7); MCHC 32.4 g/dl (32.0-35.9); MEAN CELL VOLUME 87.7 fl (80-96); MEAN PLT VOLUME 8.8 fl (7.5-11.1); PLATELET COUNT 269 10^3/uL (134-434); RBC 3.85 M/mm3 (4.00-5.60); RDW 15.1 % (11.9-15.9); WHITE BLOOD COUNT 4.5 K/mm3 (4.0-10.0)
[2022-11-07 11:10] LABS: CALCIUM 9.2 mg/dL (8.5-10.1)
[2022-11-07 11:11] LABS: ALBUMIN 3.4 g/dl (3.4-5.0); BLOOD UREA NITROGEN 15.6 mg/dL (7-18)
[2022-11-07 11:14] LABS: CREATININE 0.8 mg/dL (0.55-1.3)
[2022-11-07 11:16] LABS: BILIRUBIN,TOTAL 0.5 mg/dL (0.2-1); TOT PROT 7.8 g/dl (6.4-8.2)
[2022-11-08] MEDS: PIPERACILLIN/TAZOB 3.375 GM 3.375 GM in DEXTROSE 5%-WATER - 50 ML IVPB SCH ×2 (02:24→10:14)
[2022-11-08] MEDS: POLYETHYLENE GLYCOL (HEALTHYLAX) 3350 17 GM PACKET PO SCH ×2 (06:58→13:13)
[2022-11-08] MEDS: LOSARTAN POTASSIUM 50 MG TABLET PO SCH (10:13)
[2022-11-08] MEDS: COLLAGENASE CLOSTRIDIUM HIST. 30 GRAMS TUBE TP SCH (10:13)
[2022-11-08] MEDS: ASCORBIC ACID 500 MG TABLET (FP) PO SCH (10:13)
[2022-11-08] MEDS: AMINO ACIDS/PROTEIN HYDROLYS 30 ML LIQUID.PKT PO SCH ×2 (10:13→17:07)
[2022-11-08 15:15] VITALS: BP 158/94; PULSE 68; RESP 20; TEMP 98.3
[2022-11-08] MEDS ORDERED: AMOX TR/POT CLAV 500MG/125MG TABLETS (FP) PO SCH (17:30)
== END 2022-11-08 20:00 | DRG 727 ==
LOC: JER 01:51 → JERBED 08:31 → J8W 10:56
PROVIDERS: ADMIT Family Medicine; ATTEND Family Medicine
DX: N49.2 Inflammatory disorders of scrotum (principal); L89.153 Pressure ulcer of sacral region, stage 3; R53.2 Functional quadriplegia; L03.90 Cellulitis, unspecified; T83.010A Breakdown (mechanical) of cystostomy catheter, initial encounter; I44.4 Left anterior fascicular block; N21.0 Calculus in bladder; N18.9 Chronic kidney disease, unspecified; F03.90 Unspecified dementia, unspecified severity, without behavioral disturbance, psychotic disturbance, mood disturbance, and anxiety; E11.9 Type 2 diabetes mellitus without complications; Z93.59 Other cystostomy status; G35 Multiple sclerosis; G40.909 Epilepsy, unspecified, not intractable, without status epilepticus; E11.22 Type 2 diabetes mellitus with diabetic chronic kidney disease; I10 Essential (primary) hypertension; R63.4 Abnormal weight loss; H54.8 Legal blindness, as defined in USA; I25.10 Atherosclerotic heart disease of native coronary artery without angina pectoris
CPT/HCPCS: 0241U-QW; 36415; 71045-TC-FY; 74177-TC; 76870-TC; 80053; 83605; 83690; 84484; 85025; 85027; 87070; 87116; 87205; 87206; 93005; 93010; 93971; 99285-25; C9803-CS; J1644; U0003; U0005

== ENCOUNTER 2023-10-17 20:05 | Inpatient (IN) | payer OTHER ==
[2023-10-17] MEDS ORDERED: SODIUM CHLORIDE 0.9% 500 ML INFUS.BAG IV ONE (20:22)
[2023-10-17 20:38] LABS: BASO % 0.5 % (0-2.0); EOS % 0.3 % (0-4.5); HEMATOCRIT 32.9 % (35.4-49); HEMOGLOBIN 10.2 GM/dL (11.7-16.9); LYMPH % 9.2 % (8-40); MCH 26.9 pg (25.7-33.7); MCHC 30.9 g/dl (32.0-35.9); MEAN PLT VOLUME 11.1 fl (7.5-11.1); PLATELET COUNT 143 10^3/uL (134-434); RBC 3.78 M/mm3 (4.00-5.60); RDW 14.5 % (11.9-15.9); WHITE BLOOD COUNT 17.4 K/mm3 (4.0-10.0)
[2023-10-17 20:41] LABS: VENOUS O2 SATURATION 25.1 % (70-80); VENOUS PCO2 31.7 mmHg (38-52); VENOUS PH 7.36 (7.310-7.410)
[2023-10-17 20:57] LABS: CHLORIDE 120 mmol/L (98-107); SODIUM 147 mmol/L (136-145)
[2023-10-17 20:59] LABS: ALBUMIN 1.8 g/dl (3.4-5.0); CALCIUM 8.2 mg/dL (8.5-10.1); CO2 20 mmol/L (21-32); GLUCOSE,RANDOM 102 mg/dL (74-106)
[2023-10-17 21:00] LABS: BLOOD UREA NITROGEN 70.3 mg/dL (7-18)
[2023-10-17 21:02] LABS: CREATININE 1.1 mg/dL (0.55-1.3); SGOT/AST 84 U/L (15-37); SGPT/ALT 26 U/L (13-61)
[2023-10-17 21:04] LABS: BILIRUBIN,TOTAL 4.2 mg/dL (0.2-1); TOT PROT 7.9 g/dl (6.4-8.2)
[2023-10-17 21:05] LABS: ALK PHOS 97 U/L (45-117)
[2023-10-17 21:08] LABS: N-TERMINAL BNP 575.5 pg/ml (5-125)
[2023-10-17 21:20] LABS: ANISOCYTOSIS 1+; MACROCYTOSIS 0
[2023-10-17 21:51] LABS: ANION GAP 8 mmol/L (4-13); POTASSIUM 6.1 mmol/L (3.5-5.1)
[2023-10-17 22:01] LABS: INR 1.2 (0.83-1.09); PROTHROMBIN TIME (PATIENT) 13.9 SEC (9.7-13.0)
[2023-10-17 22:04] LABS: ACTIVATED PTT 26.7 SECONDS (25.2-36.5)
[2023-10-17 22:15] LABS: CHLORIDE 136 mmol/L (98-107); SODIUM 158 mmol/L (136-145)
[2023-10-17 22:17] LABS: CO2 13 mmol/L (21-32); GLUCOSE,RANDOM 60 mg/dL (74-106)
[2023-10-17 22:21] LABS: CREATININE 0.3 mg/dL (0.55-1.3)
[2023-10-17 22:34] LABS: LACTIC ACID 2.3 mmol/L (0.4-2.0)
[2023-10-17] MEDS ORDERED: VANCOMYCIN 1,000 MG in DEXTROSE 5%-WATER - 250 ML IVPB ONE (22:43)
[2023-10-17] MEDS ORDERED: PIPERACILLIN/TAZOB 4.5 GM 4.5 GM in DEXTROSE 5%-WATER 100 ML IVPB ONE (22:43)
[2023-10-17 22:47] LABS: ANION GAP 9 mmol/L (4-13); BLOOD UREA NITROGEN 41.8 mg/dL (7-18); POTASSIUM 1.8 mmol/L (3.5-5.1)
[2023-10-17] MEDS ORDERED: SODIUM PHOSPHATE/NA BIPHOS 133 ML ENEMA PR ONE (22:59)
[2023-10-17] MEDS ORDERED: PIPERACILLIN/TAZOB 4.5 GM 4.5 GM/100 ML BAG IVPB ONE (23:38)
[2023-10-17] MEDS ORDERED: LACTATED RINGERS SOLUTION 1,000 ML/1,000 ML INFUS.BAG IV SCH (23:45)
[2023-10-17] MEDS ORDERED: ACETAMINOPHEN 1000 MG/100 ML BAG IVPB ONE (23:59)
[2023-10-18] MEDS ORDERED: ACETAMINOPHEN INJECTION 100 ML IVPB ONE (00:18)
[2023-10-18 00:36] LABS: ERYTHROCYTE SEDIMENTATION RATE 83 mm/hr (0-20)
[2023-10-18 00:58] LABS: POTASSIUM 3.5 mmol/L (3.5-5.1)
[2023-10-18 01:00] LABS: CALCIUM 8.3 mg/dL (8.5-10.1)
[2023-10-18 01:01] LABS: ALBUMIN 1.6 g/dl (3.4-5.0); BLOOD UREA NITROGEN 64.9 mg/dL (7-18)
[2023-10-18 01:04] LABS: CREATININE 0.9 mg/dL (0.55-1.3)
[2023-10-18 01:05] LABS: BILIRUBIN,TOTAL 2.6 mg/dL (0.2-1); TOT PROT 6.5 g/dl (6.4-8.2)
[2023-10-18] MEDS ORDERED: VANCOMYCIN 1 GRAM (PRE-DOCKED) 1,000 MG/250 ML BAG IVPB ONE (01:07)
[2023-10-18] MEDS ORDERED: SODIUM CHLORIDE 0.9% 500 ML INFUS.BAG IV ONE ×3 (01:15→10:02)
[2023-10-18 02:15] LABS: LACTIC ACID 2.9 mmol/L (0.4-2.0)
[2023-10-18] MEDS ORDERED: ACETAMINOPHEN 1000 MG/100 ML BAG IVPB PRN (04:28)
[2023-10-18 09:01] LABS: BASO % 0.2 % (0-2.0); EOS % 0.6 % (0-4.5); HEMATOCRIT 24.6 % (35.4-49); HEMOGLOBIN 7.8 GM/dL (11.7-16.9); LYMPH % 7.1 % (8-40); MCH 27.5 pg (25.7-33.7); MCHC 31.8 g/dl (32.0-35.9); MEAN CELL VOLUME 86.3 fl (80-96); MEAN PLT VOLUME 10.4 fl (7.5-11.1); MONO % 2.8 % (3.8-10.2); NEUT % 89.3 % (42.8-82.8); PLATELET COUNT 108 10^3/uL (134-434); RBC 2.86 M/mm3 (4.00-5.60); RDW 14.4 % (11.9-15.9); WHITE BLOOD COUNT 17.7 K/mm3 (4.0-10.0)
[2023-10-18 09:14] LABS: CHLORIDE 126 mmol/L (98-107); SODIUM 152 mmol/L (136-145)
[2023-10-18 09:19] LABS: ALBUMIN 1.5 g/dl (3.4-5.0); BLOOD UREA NITROGEN 54.5 mg/dL (7-18); CALCIUM 7.8 mg/dL (8.5-10.1); CO2 19 mmol/L (21-32); GLUCOSE,RANDOM 97 mg/dL (74-106)
[2023-10-18 09:21] LABS: CREATININE 0.8 mg/dL (0.55-1.3); SGPT/ALT 22 U/L (13-61)
[2023-10-18 09:22] LABS: SGOT/AST 34 U/L (15-37)
[2023-10-18 09:23] LABS: BILIRUBIN,TOTAL 2.4 mg/dL (0.2-1); TOT PROT 6.1 g/dl (6.4-8.2)
[2023-10-18 09:24] LABS: ALK PHOS 75 U/L (45-117)
[2023-10-18 09:29] LABS: ANION GAP 6 mmol/L (4-13); POTASSIUM 2.8 mmol/L (3.5-5.1)
[2023-10-18] MEDS ORDERED: PIPERACILLIN/TAZOB 3.375 GM 3.375 GM in DEXTROSE 5%-WATER - 50 ML IVPB SCH ×2 (09:30→10:00)
[2023-10-18] MEDS ORDERED: LACTATED RINGERS SOLUTION 1,000 ML/1,000 ML INFUS.BAG IV SCH (09:46)
[2023-10-18] MEDS: POLYETHYLENE GLYCOL (HEALTHYLAX) 3350 17 GM PACKET PO SCH ×2 (10:00→22:01)
[2023-10-18] MEDS ORDERED: POLYETHYLENE GLYCOL (HEALTHYLAX) 3350 17 GM PACKET PO SCH (10:00)
[2023-10-18] MEDS ORDERED: MINERAL OIL ENEMA 133 ML ENEMA RC ONE (10:05)
[2023-10-18] MEDS ORDERED: SODIUM CHLORIDE 1,000 ML IV STA (10:14)
[2023-10-18 11:14] LABS: BILIRUBIN,DIRECT 1.8 mg/dL (0.0-0.2)
[2023-10-18] MEDS ORDERED: PIPERACILLIN/TAZOB 3.375 GM 3.375 GM/50 ML BAG IVPB ONE (12:32)
[2023-10-18] MEDS: PIPERACILLIN/TAZOB 3.375 GM 3.375 GM in DEXTROSE 5%-WATER - 50 ML IVPB SCH ×2 (12:38→17:14)
[2023-10-18] MEDS ORDERED: PANTOPRAZOLE SODIUM 40 MG VIAL IVPUSH ONE (12:49)
[2023-10-18] MEDS ORDERED: VANCOMYCIN/WATER FOR INJ (PEG) 1,000 MG/200 ML BAG IVPB SCH (14:00)
[2023-10-18] MEDS: KCL 10 MEQ IVPB 10 MEQ/100 ML INFUS.BAG IVPB SCH (15:00)
[2023-10-18] MEDS: VANCOMYCIN/WATER FOR INJ (PEG) 1,000 MG/200 ML BAG IVPB SCH (15:01)
[2023-10-18 16:11] VITALS: BMI 21.9
[2023-10-18 16:56] LABS: BASO % 0.2 % (0-2.0); EOS % 0.4 % (0-4.5); HEMATOCRIT 26.1 % (35.4-49); HEMOGLOBIN 7.9 GM/dL (11.7-16.9); LYMPH % 5.8 % (8-40); MCH 26.1 pg (25.7-33.7); MCHC 30.2 g/dl (32.0-35.9); MEAN CELL VOLUME 86.3 fl (80-96); MONO % 3.3 % (3.8-10.2); NEUT % 90.3 % (42.8-82.8); PLATELET COUNT 121 10^3/uL (134-434); RBC 3.02 M/mm3 (4.00-5.60); WHITE BLOOD COUNT 19.4 K/mm3 (4.0-10.0)
[2023-10-18 17:24] LABS: BLOOD UREA NITROGEN 43.1 mg/dL (7-18); CALCIUM 7.8 mg/dL (8.5-10.1)
[2023-10-18 17:26] LABS: ALBUMIN 1.5 g/dl (3.4-5.0)
[2023-10-18 17:27] LABS: CREATININE 0.7 mg/dL (0.55-1.3)
[2023-10-18] MEDS: D5-1/2NS+20 MEQ KCL - 20 MEQ/1,000 ML INFUS.BAG IV SCH (20:00)
[2023-10-18] MEDS: MUPIROCIN 2% TOPICAL OINTMENT FOR DECOLONIZATION NS SCH (21:41)
[2023-10-18] MEDS: CHLORHEXIDINE GLUCONATE 4% CLEANSER FOR DECOLONIZATION TP SCH (21:42)
[2023-10-19] MEDS: VANCOMYCIN/WATER FOR INJ (PEG) 1,000 MG/200 ML BAG IVPB SCH ×2 (00:30→15:05)
[2023-10-19] MEDS: PIPERACILLIN/TAZOB 3.375 GM 3.375 GM in DEXTROSE 5%-WATER - 50 ML IVPB SCH ×3 (02:41→17:47)
[2023-10-19] MEDS: D5-1/2NS+20 MEQ KCL - 20 MEQ/1,000 ML INFUS.BAG IV SCH (07:04)
[2023-10-19 07:40] LABS: EOS % 0.5 % (0-4.5); HEMATOCRIT 22.9 % (35.4-49); LYMPH % 11.1 % (8-40); MCH 26.7 pg (25.7-33.7); MCHC 30.7 g/dl (32.0-35.9); MEAN CELL VOLUME 86.8 fl (80-96); MEAN PLT VOLUME 10.9 fl (7.5-11.1); NEUT % 85.4 % (42.8-82.8); PLATELET COUNT 125 10^3/uL (134-434); RBC 2.64 M/mm3 (4.00-5.60); RDW 14.6 % (11.9-15.9); WHITE BLOOD COUNT 18.2 K/mm3 (4.0-10.0)
[2023-10-19 07:57] LABS: CHLORIDE 131 mmol/L (98-107); SODIUM 155 mmol/L (136-145)
[2023-10-19 07:59] LABS: ALBUMIN 1.3 g/dl (3.4-5.0); CALCIUM 7.4 mg/dL (8.5-10.1); CO2 17 mmol/L (21-32); GLUCOSE,RANDOM 119 mg/dL (74-106)
[2023-10-19 08:00] LABS: BLOOD UREA NITROGEN 30.8 mg/dL (7-18)
[2023-10-19 08:02] LABS: CREATININE 0.8 mg/dL (0.55-1.3); MAGNESIUM 2.5 mg/dL (1.8-2.4); PHOSPHOROUS 3.5 mg/dL (2.5-4.9); SGOT/AST 23 U/L (15-37); SGPT/ALT 20 U/L (13-61)
[2023-10-19 08:04] LABS: BILIRUBIN,TOTAL 1.4 mg/dL (0.2-1); TOT PROT 5.6 g/dl (6.4-8.2)
[2023-10-19 08:05] LABS: ALK PHOS 68 U/L (45-117)
[2023-10-19 08:42] LABS: ANION GAP 6 mmol/L (4-13); POTASSIUM 2.9 mmol/L (3.5-5.1)
[2023-10-19] MEDS: KCL 10 MEQ IVPB 10 MEQ/100 ML INFUS.BAG IVPB SCH ×3 (09:30→10:44)
[2023-10-19] MEDS: POLYETHYLENE GLYCOL (HEALTHYLAX) 3350 17 GM PACKET PO SCH ×2 (10:00→23:27)
[2023-10-19] MEDS: MUPIROCIN 2% TOPICAL OINTMENT FOR DECOLONIZATION NS SCH ×2 (10:11→22:30)
[2023-10-19] MEDS: POTASSIUM CHLORIDE 40 MEQ in DEXTROSE 5%-WATER - 1,000 ML IV SCH (11:11)
[2023-10-19 14:31] LABS: POTASSIUM 3.4 mmol/L (3.5-5.1)
[2023-10-19 14:32] LABS: CALCIUM 7.4 mg/dL (8.5-10.1)
[2023-10-19 14:33] LABS: BLOOD UREA NITROGEN 24.4 mg/dL (7-18)
[2023-10-19 14:36] LABS: CREATININE 0.8 mg/dL (0.55-1.3)
[2023-10-19] MEDS ORDERED: KCL 10 MEQ IVPB 10 MEQ/100 ML INFUS.BAG IVPB SCH (15:00)
[2023-10-19] MEDS ORDERED: ACETAMINOPHEN 1000 MG/100 ML BAG IVPB PRN (17:40)
[2023-10-19] MEDS: CHLORHEXIDINE GLUCONATE 4% CLEANSER FOR DECOLONIZATION TP SCH (23:27)
[2023-10-20] MEDS: VANCOMYCIN/WATER FOR INJ (PEG) 1,000 MG/200 ML BAG IVPB SCH ×2 (01:13→13:58)
[2023-10-20] MEDS: POTASSIUM CHLORIDE 40 MEQ in DEXTROSE 5%-WATER - 1,000 ML IV SCH (03:03)
[2023-10-20] MEDS: PIPERACILLIN/TAZOB 3.375 GM 3.375 GM in DEXTROSE 5%-WATER - 50 ML IVPB SCH ×3 (03:15→17:29)
[2023-10-20 07:33] LABS: HEMATOCRIT 23.3 % (35.4-49); HEMOGLOBIN 7.2 GM/dL (11.7-16.9); MCH 27.1 pg (25.7-33.7); MCHC 31.1 g/dl (32.0-35.9); MEAN CELL VOLUME 87.1 fl (80-96); PLATELET COUNT 139 10^3/uL (134-434); RBC 2.68 M/mm3 (4.00-5.60); RDW 14.6 % (11.9-15.9); WHITE BLOOD COUNT 22.4 K/mm3 (4.0-10.0)
[2023-10-20 07:53] LABS: POTASSIUM 3.7 mmol/L (3.5-5.1)
[2023-10-20 07:57] LABS: ALBUMIN 1.3 g/dl (3.4-5.0); BLOOD UREA NITROGEN 17.5 mg/dL (7-18); CALCIUM 7.4 mg/dL (8.5-10.1); MAGNESIUM 2.4 mg/dL (1.8-2.4)
[2023-10-20 08:00] LABS: BILIRUBIN,DIRECT 0.9 mg/dL (0.0-0.2); CREATININE 0.7 mg/dL (0.55-1.3)
[2023-10-20 08:02] LABS: BILIRUBIN,TOTAL 1.2 mg/dL (0.2-1); TOT PROT 5.8 g/dl (6.4-8.2)
[2023-10-20] MEDS: POTASSIUM CHLORIDE 20 MEQ in DEXTROSE 5%-WATER - 1,000 ML IV SCH (09:30)
[2023-10-20] MEDS: MUPIROCIN 2% TOPICAL OINTMENT FOR DECOLONIZATION NS SCH ×2 (10:52→22:32)
[2023-10-20 11:07] LABS: ANISOCYTOSIS 0; MACROCYTOSIS 0
[2023-10-20 16:51] LABS: EPI CELLS >36 /uL (0-25.1); HYALINE CASTS 5 /uL (0-3.1); PH,URINE 5.5 (5.0-8.0); URINE APPEARANCE CLOUDY; URINE BACTERIA 29 /uL (0-1359); URINE BILIRUBIN 1+ (NEGATIVE); URINE COLOR DK YELLOW; URINE GLUCOSE (UA) NEGATIVE (NEGATIVE); URINE KETONE NEGATIVE (NEGATIVE); URINE LEUK ESTERASE 1+ (NEGATIVE); URINE NITRITE NEGATIVE (NEGATIVE); URINE PROTEIN 2+ (NEGATIVE); URINE RBC 198 /uL (0-23.9); URINE UROBILINOGEN 4.0 E.U/dl mg/dL (0.2-1.0); URINE WBC 201 /uL (0-25.8)
[2023-10-20] MEDS: POLYETHYLENE GLYCOL (HEALTHYLAX) 3350 17 GM PACKET PO SCH ×2 (17:37→22:33)
[2023-10-20 19:52] LABS: URINE CRYSTALS NONE SEEN /hpf
[2023-10-20] MEDS ORDERED: ACETAMINOPHEN 1000 MG/100 ML BAG IVPB PRN (21:42)
[2023-10-20] MEDS: CHLORHEXIDINE GLUCONATE 4% CLEANSER FOR DECOLONIZATION TP SCH (22:33)
[2023-10-21] MEDS: PIPERACILLIN/TAZOB 3.375 GM 3.375 GM in DEXTROSE 5%-WATER - 50 ML IVPB SCH ×3 (01:04→20:34)
[2023-10-21] MEDS: VANCOMYCIN/WATER FOR INJ (PEG) 1,000 MG/200 ML BAG IVPB SCH ×2 (01:04→14:13)
[2023-10-21] MEDS: POTASSIUM CHLORIDE 20 MEQ in DEXTROSE 5%-WATER - 1,000 ML IV SCH ×2 (05:51→22:14)
[2023-10-21] MEDS ORDERED: DEXTROSE 50%-WATER 25 GM/50 ML DISP.SYRIN IVPUSH ONE (05:54)
[2023-10-21] MEDS ORDERED: DEXTROSE 50%-WATER 25 GM/50 ML DISP.SYRIN ONE (05:59)
[2023-10-21 07:02] LABS: BASO % 0.1 % (0-2.0); EOS % 0.8 % (0-4.5); HEMATOCRIT 21.6 % (35.4-49); LYMPH % 8.9 % (8-40); MCH 27.3 pg (25.7-33.7); MCHC 30.8 g/dl (32.0-35.9); MEAN CELL VOLUME 88.6 fl (80-96); MEAN PLT VOLUME 10.1 fl (7.5-11.1); MONO % 2.8 % (3.8-10.2); NEUT % 87.4 % (42.8-82.8); PLATELET COUNT 136 10^3/uL (134-434); RBC 2.43 M/mm3 (4.00-5.60); RDW 15.1 % (11.9-15.9); WHITE BLOOD COUNT 22.1 K/mm3 (4.0-10.0)
[2023-10-21 07:18] LABS: POTASSIUM 3.6 mmol/L (3.5-5.1)
[2023-10-21 07:19] LABS: HEMOGLOBIN 6.6 GM/dL (11.7-16.9)
[2023-10-21 07:25] LABS: ALBUMIN 1.3 g/dl (3.4-5.0); BLOOD UREA NITROGEN 14.2 mg/dL (7-18); PHOSPHOROUS 3.6 mg/dL (2.5-4.9)
[2023-10-21 07:26] LABS: TOT PROT 5.5 g/dl (6.4-8.2)
[2023-10-21 07:28] LABS: CALCIUM 7.6 mg/dL (8.5-10.1); CREATININE 0.6 mg/dL (0.55-1.3); MAGNESIUM 2.1 mg/dL (1.8-2.4)
[2023-10-21 08:56] LABS: ANISOCYTOSIS 0; MACROCYTOSIS 0
[2023-10-21] MEDS: MUPIROCIN 2% TOPICAL OINTMENT FOR DECOLONIZATION NS SCH ×2 (10:57→22:15)
[2023-10-21] MEDS: POLYETHYLENE GLYCOL (HEALTHYLAX) 3350 17 GM PACKET PO SCH ×2 (10:58→22:15)
[2023-10-21] MEDS: CHLORHEXIDINE GLUCONATE 4% CLEANSER FOR DECOLONIZATION TP SCH (22:15)
[2023-10-22] MEDS: VANCOMYCIN/WATER FOR INJ (PEG) 1,000 MG/200 ML BAG IVPB SCH ×2 (01:24→13:04)
[2023-10-22] MEDS: PIPERACILLIN/TAZOB 3.375 GM 3.375 GM in DEXTROSE 5%-WATER - 50 ML IVPB SCH ×3 (02:26→17:49)
[2023-10-22] MEDS: POTASSIUM CHLORIDE 20 MEQ in DEXTROSE 5%-WATER - 1,000 ML IV SCH ×4 (03:25→17:50)
[2023-10-22 07:26] LABS: HEMATOCRIT 27.8 % (35.4-49); MCH 28.5 pg (25.7-33.7); MCHC 32.4 g/dl (32.0-35.9); MEAN CELL VOLUME 87.8 fl (80-96); MEAN PLT VOLUME 9.5 fl (7.5-11.1); PLATELET COUNT 165 10^3/uL (134-434); RBC 3.16 M/mm3 (4.00-5.60); RDW 14.9 % (11.9-15.9); WHITE BLOOD COUNT 21.7 K/mm3 (4.0-10.0)
[2023-10-22 07:41] LABS: POTASSIUM 3.6 mmol/L (3.5-5.1)
[2023-10-22 07:45] LABS: CALCIUM 7.3 mg/dL (8.5-10.1)
[2023-10-22 07:47] LABS: ALBUMIN 1.3 g/dl (3.4-5.0); BLOOD UREA NITROGEN 9.9 mg/dL (7-18); MAGNESIUM 1.9 mg/dL (1.8-2.4)
[2023-10-22 07:49] LABS: CREATININE 0.7 mg/dL (0.55-1.3)
[2023-10-22 07:50] LABS: BILIRUBIN,TOTAL 1.4 mg/dL (0.2-1); TOT PROT 5.5 g/dl (6.4-8.2)
[2023-10-22 08:48] LABS: ANISOCYTOSIS 2+; MACROCYTOSIS 0
[2023-10-22] MEDS: MUPIROCIN 2% TOPICAL OINTMENT FOR DECOLONIZATION NS SCH ×2 (09:23→21:09)
[2023-10-22] MEDS: POLYETHYLENE GLYCOL (HEALTHYLAX) 3350 17 GM PACKET PO SCH ×2 (09:23→21:11)
[2023-10-22] MEDS: CHLORHEXIDINE GLUCONATE 4% CLEANSER FOR DECOLONIZATION TP SCH (21:09)
[2023-10-23] MEDS: VANCOMYCIN/WATER FOR INJ (PEG) 1,000 MG/200 ML BAG IVPB SCH ×2 (01:16→13:20)
[2023-10-23] MEDS: PIPERACILLIN/TAZOB 3.375 GM 3.375 GM in DEXTROSE 5%-WATER - 50 ML IVPB SCH ×3 (01:16→17:45)
[2023-10-23] MEDS: POTASSIUM CHLORIDE 20 MEQ in DEXTROSE 5%-WATER - 1,000 ML IV SCH ×3 (01:48→22:29)
[2023-10-23 07:06] LABS: BASO % 0.3 % (0-2.0); EOS % 0.6 % (0-4.5); HEMATOCRIT 26.9 % (35.4-49); HEMOGLOBIN 8.6 GM/dL (11.7-16.9); LYMPH % 12.4 % (8-40); MCH 27.9 pg (25.7-33.7); MEAN CELL VOLUME 87.1 fl (80-96); MEAN PLT VOLUME 9.6 fl (7.5-11.1); MONO % 2.8 % (3.8-10.2); NEUT % 83.9 % (42.8-82.8); PLATELET COUNT 217 10^3/uL (134-434); RBC 3.08 M/mm3 (4.00-5.60); RDW 15.6 % (11.9-15.9); WHITE BLOOD COUNT 18.7 K/mm3 (4.0-10.0)
[2023-10-23 07:34] LABS: CHLORIDE 121 mmol/L (98-107); POTASSIUM 3.4 mmol/L (3.5-5.1); SODIUM 144 mmol/L (136-145)
[2023-10-23 07:36] LABS: ALBUMIN 1.3 g/dl (3.4-5.0); ANION GAP 7 mmol/L (4-13); BLOOD UREA NITROGEN 8.4 mg/dL (7-18); CO2 16 mmol/L (21-32); GLUCOSE,RANDOM 82 mg/dL (74-106); MAGNESIUM 1.8 mg/dL (1.8-2.4)
[2023-10-23 07:40] LABS: CREATININE 0.5 mg/dL (0.55-1.3); PHOSPHOROUS 2.7 mg/dL (2.5-4.9); SGOT/AST 14 U/L (15-37); SGPT/ALT 11 U/L (13-61)
[2023-10-23 07:41] LABS: BILIRUBIN,TOTAL 1.1 mg/dL (0.2-1); TOT PROT 5.6 g/dl (6.4-8.2)
[2023-10-23 07:42] LABS: ALK PHOS 69 U/L (45-117)
[2023-10-23 07:48] LABS: CALCIUM 6.9 mg/dL (8.5-10.1)
[2023-10-23] MEDS: MUPIROCIN 2% TOPICAL OINTMENT FOR DECOLONIZATION NS SCH (09:28)
[2023-10-23] MEDS: POLYETHYLENE GLYCOL (HEALTHYLAX) 3350 17 GM PACKET PO SCH ×2 (09:29→21:40)
[2023-10-23] MEDS: CHLORHEXIDINE GLUCONATE 4% CLEANSER FOR DECOLONIZATION TP SCH (21:40)
[2023-10-23] MEDS ORDERED: LORazepam 0.5 MG TABLET PO ONE (22:45)
[2023-10-24] MEDS: PIPERACILLIN/TAZOB 3.375 GM 3.375 GM in DEXTROSE 5%-WATER - 50 ML IVPB SCH ×3 (01:06→18:11)
[2023-10-24] MEDS ORDERED: ACETAMINOPHEN 1000 MG/100 ML BAG IVPB ONE (05:28)
[2023-10-24] MEDS: POTASSIUM CHLORIDE 20 MEQ in DEXTROSE 5%-WATER - 1,000 ML IV SCH ×2 (05:54→20:15)
[2023-10-24] MEDS: VANCOMYCIN/WATER FOR INJ (PEG) 1,000 MG/200 ML BAG IVPB SCH ×2 (09:24→21:38)
[2023-10-24] MEDS: POLYETHYLENE GLYCOL (HEALTHYLAX) 3350 17 GM PACKET PO SCH ×2 (09:46→21:39)
[2023-10-24 10:00] LABS: BASO % 0.2 % (0-2.0); EOS % 0.5 % (0-4.5); HEMATOCRIT 24.4 % (35.4-49); HEMOGLOBIN 7.8 GM/dL (11.7-16.9); LYMPH % 15.1 % (8-40); MCH 27.6 pg (25.7-33.7); MCHC 31.8 g/dl (32.0-35.9); MEAN CELL VOLUME 86.8 fl (80-96); MEAN PLT VOLUME 8.9 fl (7.5-11.1); MONO % 3.7 % (3.8-10.2); NEUT % 80.5 % (42.8-82.8); PLATELET COUNT 230 10^3/uL (134-434); RBC 2.81 M/mm3 (4.00-5.60); RDW 16.3 % (11.9-15.9)
[2023-10-24 10:17] LABS: POTASSIUM 4.1 mmol/L (3.5-5.1)
[2023-10-24 10:19] LABS: ALBUMIN 1.2 g/dl (3.4-5.0); BLOOD UREA NITROGEN 8.5 mg/dL (7-18); CALCIUM 7.4 mg/dL (8.5-10.1)
[2023-10-24 10:24] LABS: BILIRUBIN,TOTAL 0.8 mg/dL (0.2-1); TOT PROT 5.4 g/dl (6.4-8.2)
[2023-10-24 10:37] LABS: CREATININE 0.6 mg/dL (0.55-1.3)
[2023-10-24 10:52] LABS: LACTIC ACID 2.2 mmol/L (0.4-2.0)
[2023-10-24] MEDS: CHLORHEXIDINE GLUCONATE 4% CLEANSER FOR DECOLONIZATION TP SCH (21:39)
[2023-10-25] MEDS: PIPERACILLIN/TAZOB 3.375 GM 3.375 GM in DEXTROSE 5%-WATER - 50 ML IVPB SCH ×3 (02:13→17:07)
[2023-10-25] MEDS: POTASSIUM CHLORIDE 20 MEQ in DEXTROSE 5%-WATER - 1,000 ML IV SCH ×4 (07:35→22:28)
[2023-10-25] MEDS ORDERED: PROPOFOL 20 ML ONE (08:06)
[2023-10-25] MEDS ORDERED: MIDAZOLAM HCL 2 MG/2 ML SINGLE DOSE VIAL ONE (08:06)
[2023-10-25] MEDS: VANCOMYCIN/WATER FOR INJ (PEG) 1,000 MG/200 ML BAG IVPB SCH ×2 (09:52→21:29)
[2023-10-25] MEDS: POLYETHYLENE GLYCOL (HEALTHYLAX) 3350 17 GM PACKET PO SCH ×2 (09:52→21:28)
[2023-10-25] MEDS ORDERED: ACETAMINOPHEN 1000 MG/100 ML BAG IVPB ONE (12:15)
[2023-10-25] MEDS: CHLORHEXIDINE GLUCONATE 4% CLEANSER FOR DECOLONIZATION TP SCH (21:29)
[2023-10-26] MEDS: PIPERACILLIN/TAZOB 3.375 GM 3.375 GM in DEXTROSE 5%-WATER - 50 ML IVPB SCH ×3 (01:22→17:46)
[2023-10-26 07:32] LABS: BASO % 0.3 % (0-2.0); EOS % 0.4 % (0-4.5); HEMATOCRIT 29.5 % (35.4-49); HEMOGLOBIN 9.7 GM/dL (11.7-16.9); LYMPH % 15.7 % (8-40); MCH 28.6 pg (25.7-33.7); MCHC 32.8 g/dl (32.0-35.9); MEAN CELL VOLUME 87.1 fl (80-96); MEAN PLT VOLUME 8.7 fl (7.5-11.1); MONO % 2.8 % (3.8-10.2); NEUT % 80.8 % (42.8-82.8); PLATELET COUNT 375 10^3/uL (134-434); RBC 3.39 M/mm3 (4.00-5.60); RDW 16.6 % (11.9-15.9); WHITE BLOOD COUNT 13.4 K/mm3 (4.0-10.0)
[2023-10-26 07:48] LABS: POTASSIUM 4.7 mmol/L (3.5-5.1)
[2023-10-26 08:02] LABS: CALCIUM 7.6 mg/dL (8.5-10.1)
[2023-10-26 08:04] LABS: ALBUMIN 1.4 g/dl (3.4-5.0); BLOOD UREA NITROGEN 6.2 mg/dL (7-18)
[2023-10-26 08:06] LABS: CREATININE 0.5 mg/dL (0.55-1.3)
[2023-10-26 08:07] LABS: BILIRUBIN,TOTAL 0.6 mg/dL (0.2-1); TOT PROT 6.4 g/dl (6.4-8.2)
[2023-10-26] MEDS: POLYETHYLENE GLYCOL (HEALTHYLAX) 3350 17 GM PACKET PO SCH ×2 (09:52→22:07)
[2023-10-26] MEDS ORDERED: ACETAMINOPHEN 1000 MG/100 ML BAG IVPB PRN (10:36)
[2023-10-26] MEDS: VANCOMYCIN/WATER FOR INJ (PEG) 1,000 MG/200 ML BAG IVPB SCH ×2 (11:25→22:07)
[2023-10-26] MEDS: POTASSIUM CHLORIDE 20 MEQ in DEXTROSE 5%-WATER - 1,000 ML IV SCH ×3 (15:21→20:50)
[2023-10-26] MEDS: CHLORHEXIDINE GLUCONATE 4% CLEANSER FOR DECOLONIZATION TP SCH (22:07)
[2023-10-27] MEDS: PIPERACILLIN/TAZOB 3.375 GM 3.375 GM in DEXTROSE 5%-WATER - 50 ML IVPB SCH ×4 (02:53→17:41)
[2023-10-27] MEDS: POTASSIUM CHLORIDE 20 MEQ in DEXTROSE 5%-WATER - 1,000 ML IV SCH (06:30)
[2023-10-27] MEDS: LACTATED RINGERS SOLUTION 1,000 ML/1,000 ML INFUS.BAG IV SCH ×3 (06:41→22:07)
[2023-10-27] MEDS: VANCOMYCIN/WATER FOR INJ (PEG) 1,000 MG/200 ML BAG IVPB SCH ×2 (09:14→22:07)
[2023-10-27] MEDS: POLYETHYLENE GLYCOL (HEALTHYLAX) 3350 17 GM PACKET PO SCH ×2 (09:14→22:07)
[2023-10-28] MEDS: PIPERACILLIN/TAZOB 3.375 GM 3.375 GM in DEXTROSE 5%-WATER - 50 ML IVPB SCH ×3 (02:39→18:44)
[2023-10-28 09:04] LABS: HEMOGLOBIN 7.8 GM/dL (11.7-16.9); MCH 28.6 pg (25.7-33.7); MCHC 32.6 g/dl (32.0-35.9); MEAN CELL VOLUME 87.7 fl (80-96); MEAN PLT VOLUME 9.3 fl (7.5-11.1); PLATELET COUNT 237 10^3/uL (134-434); RBC 2.74 M/mm3 (4.00-5.60); RDW 16.3 % (11.9-15.9); WHITE BLOOD COUNT 9.2 K/mm3 (4.0-10.0)
[2023-10-28] MEDS: POLYETHYLENE GLYCOL (HEALTHYLAX) 3350 17 GM PACKET PO SCH ×2 (13:02→23:23)
[2023-10-28] MEDS: LACTATED RINGERS SOLUTION 1,000 ML/1,000 ML INFUS.BAG IV SCH (13:12)
[2023-10-28] MEDS: VANCOMYCIN/WATER FOR INJ (PEG) 1,000 MG/200 ML BAG IVPB SCH ×2 (13:55→23:51)
[2023-10-28 16:10] LABS: ALBUMIN 1.4 g/dl (3.4-5.0); BILIRUBIN,TOTAL 0.5 mg/dL (0.2-1); BLOOD UREA NITROGEN 6.3 mg/dL (7-18); CALCIUM 7.6 mg/dL (8.5-10.1); CREATININE 0.5 mg/dL (0.55-1.3); MAGNESIUM 2.1 mg/dL (1.8-2.4); POTASSIUM 4.3 mmol/L (3.5-5.1); TOT PROT 6.1 g/dl (6.4-8.2)
[2023-10-29] MEDS: PIPERACILLIN/TAZOB 3.375 GM 3.375 GM in DEXTROSE 5%-WATER - 50 ML IVPB SCH ×3 (01:20→18:38)
[2023-10-29] MEDS: POLYETHYLENE GLYCOL (HEALTHYLAX) 3350 17 GM PACKET PO SCH ×2 (11:03→22:20)
[2023-10-29] MEDS: LACTATED RINGERS SOLUTION 1,000 ML/1,000 ML INFUS.BAG IV SCH (11:05)
[2023-10-29] MEDS: VANCOMYCIN/WATER FOR INJ (PEG) 1,000 MG/200 ML BAG IVPB SCH ×2 (11:49→22:21)
[2023-10-29] MEDS ORDERED: INSULIN (NOVOLOG) ASPART 100 UNITS/ML 10ML VIAL ONE (19:37)
[2023-10-30] MEDS: LACTATED RINGERS SOLUTION 1,000 ML/1,000 ML INFUS.BAG IV SCH ×2 (01:51→09:31)
[2023-10-30] MEDS: PIPERACILLIN/TAZOB 3.375 GM 3.375 GM in DEXTROSE 5%-WATER - 50 ML IVPB SCH ×3 (06:38→17:15)
[2023-10-30 09:27] LABS: BASO % 0.9 % (0-2.0); EOS % 1.5 % (0-4.5); HEMATOCRIT 24.4 % (35.4-49); HEMOGLOBIN 7.8 GM/dL (11.7-16.9); LYMPH % 34.9 % (8-40); MCH 28.1 pg (25.7-33.7); MCHC 32.1 g/dl (32.0-35.9); MEAN CELL VOLUME 87.5 fl (80-96); MEAN PLT VOLUME 7.3 fl (7.5-11.1); MONO % 10.4 % (3.8-10.2); NEUT % 52.3 % (42.8-82.8); PLATELET COUNT 424 10^3/uL (134-434); RBC 2.78 M/mm3 (4.00-5.60); RDW 16.4 % (11.9-15.9); WHITE BLOOD COUNT 6.2 K/mm3 (4.0-10.0)
[2023-10-30] MEDS: VANCOMYCIN/WATER FOR INJ (PEG) 1,000 MG/200 ML BAG IVPB SCH (09:30)
[2023-10-30] MEDS: POLYETHYLENE GLYCOL (HEALTHYLAX) 3350 17 GM PACKET PO SCH ×2 (09:31→22:57)
[2023-10-30 09:45] LABS: POTASSIUM 4.1 mmol/L (3.5-5.1)
[2023-10-30 09:56] LABS: CALCIUM 7.9 mg/dL (8.5-10.1)
[2023-10-30 09:57] LABS: ALBUMIN 1.5 g/dl (3.4-5.0); BLOOD UREA NITROGEN 7.9 mg/dL (7-18)
[2023-10-30 10:00] LABS: CREATININE 0.5 mg/dL (0.55-1.3)
[2023-10-30 10:02] LABS: BILIRUBIN,TOTAL 0.6 mg/dL (0.2-1); TOT PROT 6.2 g/dl (6.4-8.2)
[2023-10-31] MEDS: PIPERACILLIN/TAZOB 3.375 GM 3.375 GM in DEXTROSE 5%-WATER - 50 ML IVPB SCH ×3 (02:06→18:10)
[2023-10-31] MEDS ORDERED: FUROSEMIDE 40 MG/4 ML INJECTABLE VIAL IVPUSH ONE (11:20)
[2023-10-31] MEDS: LACTATED RINGERS SOLUTION 1,000 ML/1,000 ML INFUS.BAG IV SCH ×3 (12:53→19:49)
[2023-10-31] MEDS: POLYETHYLENE GLYCOL (HEALTHYLAX) 3350 17 GM PACKET PO SCH ×2 (12:53→22:43)
[2023-11-01] MEDS: PIPERACILLIN/TAZOB 3.375 GM 3.375 GM in DEXTROSE 5%-WATER - 50 ML IVPB SCH ×3 (01:34→18:03)
[2023-11-01] MEDS: MULTIVITAMINS (DAILY MVI) TABLET (FP) PO SCH (12:38)
[2023-11-01] MEDS: ASCORBIC ACID 250 MG TABLET (FP) PO SCH (12:38)
[2023-11-01] MEDS: ZINC SULFATE 220 MG CAPSULE (FP) PO SCH (12:38)
[2023-11-01] MEDS: POLYETHYLENE GLYCOL (HEALTHYLAX) 3350 17 GM PACKET PO SCH ×2 (12:38→21:42)
[2023-11-01 13:00] LABS: BASO % 0.7 % (0-2.0); EOS % 1.1 % (0-4.5); HEMATOCRIT 25.3 % (35.4-49); HEMOGLOBIN 8.4 GM/dL (11.7-16.9); MCH 28.7 pg (25.7-33.7); MCHC 33.2 g/dl (32.0-35.9); MEAN CELL VOLUME 86.4 fl (80-96); MEAN PLT VOLUME 7.3 fl (7.5-11.1); MONO % 9.8 % (3.8-10.2); NEUT % 66.4 % (42.8-82.8); PLATELET COUNT 453 10^3/uL (134-434); RBC 2.92 M/mm3 (4.00-5.60); RDW 16.5 % (11.9-15.9); WHITE BLOOD COUNT 6.4 K/mm3 (4.0-10.0)
[2023-11-01 13:21] LABS: POTASSIUM 4.2 mmol/L (3.5-5.1)
[2023-11-01 13:23] LABS: CALCIUM 8.5 mg/dL (8.5-10.1)
[2023-11-01 13:24] LABS: ALBUMIN 1.6 g/dl (3.4-5.0); BLOOD UREA NITROGEN 8.4 mg/dL (7-18)
[2023-11-01 13:27] LABS: CREATININE 0.5 mg/dL (0.55-1.3)
[2023-11-01 13:29] LABS: BILIRUBIN,TOTAL 0.4 mg/dL (0.2-1); TOT PROT 6.6 g/dl (6.4-8.2)
[2023-11-02] MEDS: PIPERACILLIN/TAZOB 3.375 GM 3.375 GM in DEXTROSE 5%-WATER - 50 ML IVPB SCH ×3 (01:09→17:21)
[2023-11-02] MEDS: POLYETHYLENE GLYCOL (HEALTHYLAX) 3350 17 GM PACKET PO SCH ×2 (10:30→22:13)
[2023-11-02] MEDS: ZINC SULFATE 220 MG CAPSULE (FP) PO SCH (10:31)
[2023-11-02] MEDS: MULTIVITAMINS (DAILY MVI) TABLET (FP) PO SCH (10:32)
[2023-11-02] MEDS: ASCORBIC ACID 250 MG TABLET (FP) PO SCH (10:33)
[2023-11-03] MEDS: PIPERACILLIN/TAZOB 3.375 GM 3.375 GM in DEXTROSE 5%-WATER - 50 ML IVPB SCH ×3 (02:27→17:19)
[2023-11-03] MEDS: ASCORBIC ACID 250 MG TABLET (FP) PO SCH (11:45)
[2023-11-03] MEDS: ZINC SULFATE 220 MG CAPSULE (FP) PO SCH (11:45)
[2023-11-03] MEDS: MULTIVITAMINS (DAILY MVI) TABLET (FP) PO SCH (11:45)
[2023-11-03] MEDS: POLYETHYLENE GLYCOL (HEALTHYLAX) 3350 17 GM PACKET PO SCH ×2 (11:46→23:47)
[2023-11-04] MEDS: PIPERACILLIN/TAZOB 3.375 GM 3.375 GM in DEXTROSE 5%-WATER - 50 ML IVPB SCH ×3 (02:19→17:30)
[2023-11-04 09:27] LABS: POTASSIUM 4.5 mmol/L (3.5-5.1)
[2023-11-04 09:32] LABS: CALCIUM 8.4 mg/dL (8.5-10.1)
[2023-11-04 09:33] LABS: ALBUMIN 1.9 g/dl (3.4-5.0); BLOOD UREA NITROGEN 7.7 mg/dL (7-18)
[2023-11-04 09:36] LABS: CREATININE 0.5 mg/dL (0.55-1.3)
[2023-11-04 09:38] LABS: BILIRUBIN,TOTAL 0.5 mg/dL (0.2-1); TOT PROT 7.5 g/dl (6.4-8.2)
[2023-11-04] MEDS: MULTIVITAMINS (DAILY MVI) TABLET (FP) PO SCH (11:03)
[2023-11-04] MEDS: ASCORBIC ACID 250 MG TABLET (FP) PO SCH (11:03)
[2023-11-04] MEDS: POLYETHYLENE GLYCOL (HEALTHYLAX) 3350 17 GM PACKET PO SCH ×2 (11:03→21:55)
[2023-11-04] MEDS: ZINC SULFATE 220 MG CAPSULE (FP) PO SCH (11:03)
[2023-11-05] MEDS: PIPERACILLIN/TAZOB 3.375 GM 3.375 GM in DEXTROSE 5%-WATER - 50 ML IVPB SCH ×2 (02:57→09:55)
[2023-11-05 09:49] LABS: EOS % 2.7 % (0-4.5); HEMATOCRIT 27.4 % (35.4-49); HEMOGLOBIN 9.1 GM/dL (11.7-16.9); LYMPH % 34.7 % (8-40); MCH 28.7 pg (25.7-33.7); MEAN PLT VOLUME 7.4 fl (7.5-11.1); MONO % 10.1 % (3.8-10.2); NEUT % 51.5 % (42.8-82.8); PLATELET COUNT 499 10^3/uL (134-434); RBC 3.15 M/mm3 (4.00-5.60); RDW 16.2 % (11.9-15.9); WHITE BLOOD COUNT 6.2 K/mm3 (4.0-10.0)
[2023-11-05] MEDS: ASCORBIC ACID 250 MG TABLET (FP) PO SCH (09:56)
[2023-11-05] MEDS: ZINC SULFATE 220 MG CAPSULE (FP) PO SCH (09:56)
[2023-11-05] MEDS: MULTIVITAMINS (DAILY MVI) TABLET (FP) PO SCH (09:56)
[2023-11-05] MEDS: POLYETHYLENE GLYCOL (HEALTHYLAX) 3350 17 GM PACKET PO SCH (09:57)
[2023-11-05 10:08] LABS: POTASSIUM 4.6 mmol/L (3.5-5.1)
[2023-11-05 10:11] LABS: ALBUMIN 1.8 g/dl (3.4-5.0)
[2023-11-05 10:13] LABS: CALCIUM 8.4 mg/dL (8.5-10.1)
[2023-11-05 10:14] LABS: CREATININE 0.5 mg/dL (0.55-1.3)
[2023-11-05 10:16] LABS: BILIRUBIN,TOTAL 0.5 mg/dL (0.2-1)
[2023-11-05 10:18] LABS: TOT PROT 7.4 g/dl (6.4-8.2)
[2023-11-05 13:24] VITALS: RESP 20
[2023-11-05 15:09] VITALS: TEMP 98.8
[2023-11-05 23:49] VITALS: BP 159/85; PULSE 89
[2023-11-06] MEDS: POLYETHYLENE GLYCOL (HEALTHYLAX) 3350 17 GM PACKET PO SCH (01:13)
== END 2023-11-05 23:30 | DRG 853 ==
LOC: JER 20:05 → JERBED 10-18 02:48 → JICU 10-18 12:52 → J8W 10-27 21:05
PROVIDERS: ADMIT Student in an Organized Health Care Education/Training Program; ATTEND Family Medicine
PROC: 0KBN0ZZ Excision of Right Hip Muscle, Open Approach (ICD-10-PCS; 2023-10-25)
PROC: 0KBP0ZZ Excision of Left Hip Muscle, Open Approach (ICD-10-PCS; principal; 2023-10-25 07:30)
PROC: 0T9B70Z Drainage of Bladder with Drainage Device, Via Natural or Artificial Opening (ICD-10-PCS; 2023-11-01)
PROC: BT10YZZ Fluoroscopy of Bladder using Other Contrast (ICD-10-PCS; 2023-11-01)
DX: A41.9 Sepsis, unspecified organism (principal); J18.9 Pneumonia, unspecified organism; L89.154 Pressure ulcer of sacral region, stage 4; R53.2 Functional quadriplegia; E87.0 Hyperosmolality and hypernatremia; K81.0 Acute cholecystitis; N39.0 Urinary tract infection, site not specified; I25.10 Atherosclerotic heart disease of native coronary artery without angina pectoris; G40.909 Epilepsy, unspecified, not intractable, without status epilepticus; F03.90 Unspecified dementia, unspecified severity, without behavioral disturbance, psychotic disturbance, mood disturbance, and anxiety; N18.9 Chronic kidney disease, unspecified; E87.6 Hypokalemia; E11.22 Type 2 diabetes mellitus with diabetic chronic kidney disease; I12.9 Hypertensive chronic kidney disease with stage 1 through stage 4 chronic kidney disease, or unspecified chronic kidney disease; H54.8 Legal blindness, as defined in USA; D63.8 Anemia in other chronic diseases classified elsewhere; N21.0 Calculus in bladder; N31.9 Neuromuscular dysfunction of bladder, unspecified
CPT/HCPCS: 0241U-QW; 36415; 36430; 70450-TC; 71045-TC-FY; 71250-TC; 74177-TC; 75984-FY; 76705-TC; 80048; 80053; 81003; 82248; 82272; 82550; 82553; 82803; 82962; 83605; 83690; 83735; 83880; 84100; 84443; 84484; 85025; 85027; 85610; 85651; 85730; 86140; 86850; 86900; 86901; 86922; 87040; 87070; 87186; 87205; 87635; 88304-TC; 93005; 93010; 93306-TC; 97161-GP; 99285-25; G0463; G0480; J0131; P9038; P9058; Q9967

== ENCOUNTER 2024-01-07 14:22 | Inpatient (IN) | payer OTHER ==
[2024-01-07 17:33] LABS: VENOUS BASE EXCESS 2.8 mmol/L (-2-2); VENOUS O2 SATURATION 36.2 % (70-80); VENOUS PCO2 45.5 mmHg (38-52); VENOUS PH 7.407 (7.310-7.410)
[2024-01-07 17:34] LABS: BASO % 0.6 % (0-2.0); EOS % 2.3 % (0-4.5); HEMATOCRIT 34.4 % (35.4-49); LYMPH % 36.8 % (8-40); MCH 26.4 pg (25.7-33.7); MCHC 32.1 g/dl (32.0-35.9); MEAN CELL VOLUME 82.4 fl (80-96); MEAN PLT VOLUME 7.2 fl (7.5-11.1); MONO % 7.2 % (3.8-10.2); NEUT % 53.1 % (42.8-82.8); PLATELET COUNT 520 10^3/uL (134-434); RBC 4.17 M/mm3 (4.00-5.60); RDW 15.6 % (11.9-15.9); WHITE BLOOD COUNT 7.1 K/mm3 (4.0-10.0)
[2024-01-07 17:41] LABS: INR 1.03 (0.83-1.09); PROTHROMBIN TIME (PATIENT) 11.9 SEC (9.7-13.0)
[2024-01-07 17:52] LABS: POTASSIUM 3.2 mmol/L (3.5-5.1)
[2024-01-07 17:55] LABS: ALBUMIN 2.4 g/dl (3.4-5.0); BLOOD UREA NITROGEN 10.9 mg/dL (7-18); CALCIUM 8.7 mg/dL (8.5-10.1)
[2024-01-07 17:59] LABS: BILIRUBIN,TOTAL 0.4 mg/dL (0.2-1); CREATININE 0.7 mg/dL (0.55-1.3); TOT PROT 7.8 g/dl (6.4-8.2)
[2024-01-07] MEDS ORDERED: KCL 10 MEQ IVPB 10 MEQ/100 ML INFUS.BAG IVPB ONE ×2 (18:26→23:26)
[2024-01-07] MEDS: KCL 10 MEQ IVPB 10 MEQ/100 ML INFUS.BAG IVPB SCH (18:35)
[2024-01-07] MEDS: SODIUM CHLORIDE 0.9% 500 ML INFUS.BAG IV ONE (23:35)
[2024-01-08] MEDS: KCL 10 MEQ IVPB 10 MEQ/100 ML INFUS.BAG IVPB SCH (04:30)
[2024-01-08] MEDS: INSULIN ASPART SLIDING SCALE (NOVOLOG) 1 VIAL SQ SCH (07:06)
[2024-01-08 08:39] LABS: BASO % 0.9 % (0-2.0); HEMATOCRIT 33.2 % (35.4-49); HEMOGLOBIN 10.5 GM/dL (11.7-16.9); LYMPH % 36.5 % (8-40); MCH 26.3 pg (25.7-33.7); MCHC 31.6 g/dl (32.0-35.9); MEAN PLT VOLUME 8.1 fl (7.5-11.1); MONO % 7.6 % (3.8-10.2); PLATELET COUNT 436 10^3/uL (134-434); RDW 15.5 % (11.9-15.9); WHITE BLOOD COUNT 6.3 K/mm3 (4.0-10.0)
[2024-01-08 09:01] LABS: POTASSIUM 3.6 mmol/L (3.5-5.1)
[2024-01-08 09:04] LABS: BLOOD UREA NITROGEN 9.8 mg/dL (7-18)
[2024-01-08 09:07] LABS: CALCIUM 8.6 mg/dL (8.5-10.1); CREATININE 0.5 mg/dL (0.55-1.3); MAGNESIUM 2.5 mg/dL (1.8-2.4); PHOSPHOROUS 3.4 mg/dL (2.5-4.9)
[2024-01-08] MEDS: POLYETHYLENE GLYCOL (HEALTHYLAX) 3350 17 GM PACKET PO SCH (10:38)
[2024-01-08] MEDS: ASCORBIC ACID 500 MG TABLET (FP) PO SCH (11:49)
[2024-01-08] MEDS: LOSARTAN POTASSIUM 25 MG TABLET PO SCH (11:49)
[2024-01-08] MEDS: MULTIVITAMINS (DAILY MVI) TABLET (FP) PO SCH (11:49)
[2024-01-08] MEDS: HEPARIN NA (PORCINE) 5,000 UNITS/ML 1ML VIAL SQ SCH (14:50)
[2024-01-08 15:15] VITALS: BMI 18.1
[2024-01-08] MEDS: CEFTRIAXONE 1 GM in DEXTROSE 5%-WATER - 50 ML IVPB SCH (15:50)
[2024-01-08] MEDS ORDERED: INSULIN (NOVOLOG) ASPART 100 UNITS/ML 10ML VIAL ONE (21:15)
[2024-01-08] MEDS: DONEPEZIL HCL 5 MG TABLET (FP) PO SCH (21:58)
[2024-01-09 06:16] LABS: EPI CELLS >36 /uL (0-25.1); HYALINE CASTS 33 /uL (0-3.1); PH,URINE 7.5 (5.0-8.0); URINE APPEARANCE TURBID; URINE BACTERIA 8450 /uL (0-1359); URINE BILIRUBIN NEGATIVE (NEGATIVE); URINE COLOR DK YELLOW; URINE GLUCOSE (UA) NEGATIVE (NEGATIVE); URINE KETONE NEGATIVE (NEGATIVE); URINE LEUK ESTERASE 3+ (NEGATIVE); URINE NITRITE NEGATIVE (NEGATIVE); URINE PROTEIN 3+ (NEGATIVE); URINE RBC 1982 /uL (0-23.9); URINE WBC 20536 /uL (0-25.8)
[2024-01-09 13:50] VITALS: RESP 18
[2024-01-09 17:05] VITALS: BP 110/60; PULSE 78; TEMP 97.8
== END 2024-01-09 17:30 | DRG 698 ==
LOC: JER 14:22 → JERBED 19:24 → J8W 01-08 00:50 → OBSVTOIN 01-08 14:18
PROVIDERS: ADMIT Internal Medicine; ATTEND Family Medicine
PROC: 0T2BX0Z Change Drainage Device in Bladder, External Approach (ICD-10-PCS; principal; 2024-01-09)
DX: T83.010A Breakdown (mechanical) of cystostomy catheter, initial encounter (principal); L89.154 Pressure ulcer of sacral region, stage 4; R53.2 Functional quadriplegia; E11.22 Type 2 diabetes mellitus with diabetic chronic kidney disease; G35 Multiple sclerosis; F03.90 Unspecified dementia, unspecified severity, without behavioral disturbance, psychotic disturbance, mood disturbance, and anxiety; L89.222 Pressure ulcer of left hip, stage 2; N18.9 Chronic kidney disease, unspecified; E86.0 Dehydration; Y83.9 Surgical procedure, unspecified as the cause of abnormal reaction of the patient, or of later complication, without mention of misadventure at the time of the procedure
CPT/HCPCS: 0241U-QW; 36415; 71045-TC-FY; 74177-TC; 75984-FY; 80048; 80053; 81003; 82803; 82962; 83605; 83735; 84100; 84484; 85025; 85610; 85730; 86850; 86900; 86901; 87040; 87045; 87046; 87086; 87186; 87324; 87449; 87635; 93005; 93010; 99285-25; E0186; G0378; J1644

== ENCOUNTER 2024-01-14 09:23 | Emergency (ER) | payer OTHER ==
[2024-01-14 10:15] VITALS: TEMP 98.4
[2024-01-14 10:57] LABS: BASO % 0.8 % (0-2.0); EOS % 2.5 % (0-4.5); HEMATOCRIT 33.8 % (35.4-49); HEMOGLOBIN 10.8 GM/dL (11.7-16.9); LYMPH % 40.3 % (8-40); MCH 26.7 pg (25.7-33.7); MCHC 31.9 g/dl (32.0-35.9); MEAN CELL VOLUME 83.7 fl (80-96); MEAN PLT VOLUME 7.7 fl (7.5-11.1); MONO % 7.1 % (3.8-10.2); NEUT % 49.3 % (42.8-82.8); PLATELET COUNT 322 10^3/uL (134-434); RBC 4.04 M/mm3 (4.00-5.60); RDW 15.3 % (11.9-15.9); WHITE BLOOD COUNT 6.9 K/mm3 (4.0-10.0)
[2024-01-14 11:08] LABS: ACTIVATED PTT 26.6 SECONDS (25.2-36.5); INR 1.04 (0.83-1.09); PROTHROMBIN TIME (PATIENT) 12.1 SEC (9.7-13.0)
[2024-01-14 11:15] LABS: POTASSIUM 3.3 mmol/L (3.5-5.1)
[2024-01-14 11:17] LABS: BLOOD UREA NITROGEN 11.6 mg/dL (7-18); CALCIUM 8.5 mg/dL (8.5-10.1)
[2024-01-14 11:18] LABS: ALBUMIN 2.3 g/dl (3.4-5.0)
[2024-01-14 11:21] LABS: CREATININE 0.5 mg/dL (0.55-1.3)
[2024-01-14 11:22] LABS: BILIRUBIN,TOTAL 0.4 mg/dL (0.2-1); TOT PROT 7.2 g/dl (6.4-8.2)
[2024-01-14 14:04] LABS: URINE APPEARANCE CLOUDY; URINE BILIRUBIN NEGATIVE (NEGATIVE); URINE COLOR YELLOW; URINE GLUCOSE (UA) NEGATIVE (NEGATIVE); URINE KETONE NEGATIVE (NEGATIVE)
[2024-01-14 14:05] LABS: URINE NITRITE POSITIVE (NEGATIVE); URINE PROTEIN 2+ (NEGATIVE)
[2024-01-14 14:06] LABS: EPI CELLS 81.6 /uL (0-25.1); HYALINE CASTS 31.1 /uL (0-3.1); URINE LEUK ESTERASE 3+ (NEGATIVE); URINE RBC 2557.2 /uL (0-23.9); URINE WBC 15207.5 /uL (0-25.8)
[2024-01-14 14:07] LABS: URINE CRYSTALS 0-1 /hpf
[2024-01-14 14:36] VITALS: BP 178/82; PULSE 87; RESP 16
== END 2024-01-14 14:37 ==
LOC: JER 09:23
DX: T83.010A Breakdown (mechanical) of cystostomy catheter, initial encounter (principal)
CPT/HCPCS: 36415; 75984-FY; 80053; 81003; 85025; 85610; 85730; 86850; 86900; 86901; 87086; 87186; 99283-25

== ENCOUNTER 2024-01-27 13:50 | Inpatient (IN) | payer OTHER ==
[2024-01-27 15:04] LABS: BASO % 0.8 % (0-2.0); EOS % 2.7 % (0-4.5); HEMATOCRIT 34.7 % (35.4-49); HEMOGLOBIN 11.2 GM/dL (11.7-16.9); MCH 26.8 pg (25.7-33.7); MCHC 32.2 g/dl (32.0-35.9); MEAN CELL VOLUME 83.3 fl (80-96); MEAN PLT VOLUME 7.8 fl (7.5-11.1); MONO % 8.2 % (3.8-10.2); NEUT % 50.3 % (42.8-82.8); PLATELET COUNT 324 10^3/uL (134-434); RBC 4.17 M/mm3 (4.00-5.60); RDW 15.4 % (11.9-15.9); WHITE BLOOD COUNT 6.4 K/mm3 (4.0-10.0)
[2024-01-27 15:16] LABS: EPI CELLS >36 /uL (0-25.1); HYALINE CASTS 199 /uL (0-3.1); PH,URINE 6.5 (5.0-8.0); URINE APPEARANCE TURBID; URINE BACTERIA >9,000 /uL (0-1359); URINE BILIRUBIN NEGATIVE (NEGATIVE); URINE COLOR DK YELLOW; URINE GLUCOSE (UA) NEGATIVE (NEGATIVE); URINE KETONE NEGATIVE (NEGATIVE); URINE LEUK ESTERASE 3+ (NEGATIVE); URINE NITRITE POSITIVE (NEGATIVE); URINE PROTEIN 3+ (NEGATIVE); URINE WBC 22661 /uL (0-25.8)
[2024-01-27 15:19] LABS: POTASSIUM 3.1 mmol/L (3.5-5.1)
[2024-01-27 15:22] LABS: ALBUMIN 2.4 g/dl (3.4-5.0); CALCIUM 8.4 mg/dL (8.5-10.1)
[2024-01-27 15:24] LABS: BLOOD UREA NITROGEN 13.3 mg/dL (7-18)
[2024-01-27 15:27] LABS: BILIRUBIN,TOTAL 0.3 mg/dL (0.2-1); CREATININE 0.6 mg/dL (0.55-1.3); TOT PROT 7.1 g/dl (6.4-8.2)
[2024-01-27] MEDS ORDERED: CEFTRIAXONE 1 GM/50 ML BAG ONE (15:42)
[2024-01-27 15:54] LABS: URINE CRYSTALS PRESENT /hpf
[2024-01-27] MEDS: CEFTRIAXONE 1,000 MG in DEXTROSE 5%-WATER - 50 ML IVPB ONE (16:18)
[2024-01-27] MEDS: LINEZOLID 600 MG PREMIX BAG 600 MG in PREMIX 300 IV ONE (16:49)
[2024-01-27] MEDS ORDERED: POLYETHYLENE GLYCOL (HEALTHYLAX) 3350 17 GM PACKET ONE (22:32)
[2024-01-27] MEDS ORDERED: HEPARIN NA (PORCINE) 5,000 UNITS/ML 1ML VIAL ONE (22:32)
[2024-01-27] MEDS: HEPARIN NA (PORCINE) 5,000 UNITS/ML 1ML VIAL SQ SCH (22:39)
[2024-01-27] MEDS: POLYETHYLENE GLYCOL (HEALTHYLAX) 3350 17 GM PACKET PO SCH (22:47)
[2024-01-28] MEDS ORDERED: HEPARIN NA (PORCINE) 5,000 UNITS/ML 1ML VIAL ONE ×3 (06:07→23:17)
[2024-01-28 06:26] LABS: BASO % 0.6 % (0-2.0); EOS % 2.6 % (0-4.5); HEMATOCRIT 36.1 % (35.4-49); HEMOGLOBIN 11.5 GM/dL (11.7-16.9); LYMPH % 54.5 % (8-40); MCH 26.6 pg (25.7-33.7); MCHC 31.8 g/dl (32.0-35.9); MEAN CELL VOLUME 83.5 fl (80-96); MEAN PLT VOLUME 9.5 fl (7.5-11.1); MONO % 7.5 % (3.8-10.2); NEUT % 34.8 % (42.8-82.8); PLATELET COUNT 225 10^3/uL (134-434); RBC 4.32 M/mm3 (4.00-5.60); RDW 15.3 % (11.9-15.9); WHITE BLOOD COUNT 6.5 K/mm3 (4.0-10.0)
[2024-01-28 06:44] LABS: POTASSIUM 3.2 mmol/L (3.5-5.1)
[2024-01-28 06:45] LABS: CALCIUM 8.8 mg/dL (8.5-10.1)
[2024-01-28 06:46] LABS: ALBUMIN 2.6 g/dl (3.4-5.0); BLOOD UREA NITROGEN 9.3 mg/dL (7-18)
[2024-01-28 06:49] LABS: CREATININE 0.5 mg/dL (0.55-1.3)
[2024-01-28 06:52] LABS: BILIRUBIN,TOTAL 0.4 mg/dL (0.2-1); TOT PROT 7.7 g/dl (6.4-8.2)
[2024-01-28] MEDS ORDERED: POLYETHYLENE GLYCOL (HEALTHYLAX) 3350 17 GM PACKET ONE ×2 (10:04→23:17)
[2024-01-28] MEDS ORDERED: LOSARTAN POTASSIUM 25 MG TABLET ONE (10:04)
[2024-01-28] MEDS: OXYBUTYNIN CHLORIDE 5 MG TABLET PO SCH (10:16)
[2024-01-28] MEDS: LOSARTAN POTASSIUM 25 MG TABLET PO SCH (10:16)
[2024-01-28] MEDS ORDERED: CEFTRIAXONE 1 GM/50 ML BAG ONE (13:26)
[2024-01-28] MEDS: CEFTRIAXONE 1 GM in DEXTROSE 5%-WATER - 50 ML IVPB SCH (13:33)
[2024-01-28] MEDS ORDERED: POTASSIUM CHLORIDE ORAL LIQUID 20 MEQ/15 ML ONE (16:04)
[2024-01-28] MEDS: POTASSIUM CHLORIDE ORAL LIQUID 20 MEQ/15 ML PO ONE (16:11)
[2024-01-29 09:24] LABS: HEMATOCRIT 34.4 % (35.4-49); HEMOGLOBIN 11.2 GM/dL (11.7-16.9); MCH 26.9 pg (25.7-33.7); MCHC 32.6 g/dl (32.0-35.9); MEAN CELL VOLUME 82.4 fl (80-96); PLATELET COUNT 276 10^3/uL (134-434); RBC 4.18 M/mm3 (4.00-5.60); RDW 15.4 % (11.9-15.9); WHITE BLOOD COUNT 5.2 K/mm3 (4.0-10.0)
[2024-01-29 09:44] LABS: POTASSIUM 3.1 mmol/L (3.5-5.1)
[2024-01-29 10:07] LABS: ALBUMIN 2.4 g/dl (3.4-5.0); CALCIUM 9.1 mg/dL (8.5-10.1)
[2024-01-29 10:08] LABS: BLOOD UREA NITROGEN 9.6 mg/dL (7-18)
[2024-01-29 10:10] LABS: CREATININE 0.5 mg/dL (0.55-1.3)
[2024-01-29 10:12] LABS: BILIRUBIN,TOTAL 0.3 mg/dL (0.2-1); TOT PROT 7.2 g/dl (6.4-8.2)
[2024-01-29 10:25] LABS: ANISOCYTOSIS 0; MACROCYTOSIS 0
[2024-01-29] MEDS: MEROPENEM 1 GM in DEXTROSE 5%-WATER 100 ML IVPB SCH (12:52)
[2024-01-29] MEDS: AMINO ACIDS/PROTEIN HYDROLYS 30 ML LIQUID.PKT PO SCH (18:03)
[2024-01-30] MEDS: ASCORBIC ACID 500 MG TABLET (FP) PO SCH (10:08)
[2024-01-30] MEDS: MULTIVITAMINS (DAILY MVI) TABLET (FP) PO SCH (10:09)
[2024-01-31] MEDS: VANCOMYCIN ORAL SOLUTION 125 MG/2.5 ML PO SCH (12:50)
[2024-02-01 08:35] LABS: BASO % 0.5 % (0-2.0); EOS % 3.4 % (0-4.5); HEMATOCRIT 29.9 % (35.4-49); HEMOGLOBIN 9.7 GM/dL (11.7-16.9); LYMPH % 56.7 % (8-40); MCH 26.8 pg (25.7-33.7); MCHC 32.3 g/dl (32.0-35.9); MEAN CELL VOLUME 82.8 fl (80-96); NEUT % 32.4 % (42.8-82.8); PLATELET COUNT 276 10^3/uL (134-434); RBC 3.61 M/mm3 (4.00-5.60); RDW 15.1 % (11.9-15.9); WHITE BLOOD COUNT 5.2 K/mm3 (4.0-10.0)
[2024-02-01 08:47] LABS: POTASSIUM 3.6 mmol/L (3.5-5.1)
[2024-02-01 09:16] LABS: ALBUMIN 2.2 g/dl (3.4-5.0); CALCIUM 8.7 mg/dL (8.5-10.1)
[2024-02-01 09:17] LABS: BLOOD UREA NITROGEN 18.7 mg/dL (7-18)
[2024-02-01 09:18] LABS: CREATININE 0.5 mg/dL (0.55-1.3)
[2024-02-01 09:20] LABS: BILIRUBIN,TOTAL 0.4 mg/dL (0.2-1); TOT PROT 6.4 g/dl (6.4-8.2)
[2024-02-02 14:35] VITALS: BMI 18.2
[2024-02-04 08:52] LABS: POTASSIUM 3.6 mmol/L (3.5-5.1)
[2024-02-04 09:04] LABS: CALCIUM 8.8 mg/dL (8.5-10.1)
[2024-02-04 09:05] LABS: ALBUMIN 2.6 g/dl (3.4-5.0); BLOOD UREA NITROGEN 16.4 mg/dL (7-18)
[2024-02-04 09:08] LABS: CREATININE 0.6 mg/dL (0.55-1.3)
[2024-02-04 09:09] LABS: BILIRUBIN,TOTAL 0.4 mg/dL (0.2-1); TOT PROT 7.2 g/dl (6.4-8.2)
[2024-02-04 09:18] LABS: BASO % 1.2 % (0-2.0); EOS % 2.2 % (0-4.5); HEMATOCRIT 36.2 % (35.4-49); HEMOGLOBIN 11.3 GM/dL (11.7-16.9); LYMPH % 40.6 % (8-40); MCH 26.3 pg (25.7-33.7); MCHC 31.1 g/dl (32.0-35.9); MEAN CELL VOLUME 84.6 fl (80-96); MEAN PLT VOLUME 9.8 fl (7.5-11.1); MONO % 6.5 % (3.8-10.2); NEUT % 49.5 % (42.8-82.8); PLATELET COUNT 241 10^3/uL (134-434); RBC 4.28 M/mm3 (4.00-5.60); RDW 15.2 % (11.9-15.9); WHITE BLOOD COUNT 8.5 K/mm3 (4.0-10.0)
[2024-02-06] MEDS: BANATROL PLUS POWDER PACKET PO SCH (21:13)
[2024-02-07 22:29] VITALS: RESP 18
[2024-02-08 06:56] VITALS: BP 148/88; PULSE 74; TEMP 98.2
== END 2024-02-08 11:34 | DRG 698 ==
LOC: JER 13:50 → JERBED 16:14 → J7W 01-29 03:01
PROVIDERS: ADMIT Internal Medicine; ATTEND Internal Medicine
DX: T83.020A Displacement of cystostomy catheter, initial encounter (principal); E43 Unspecified severe protein-calorie malnutrition; L89.323 Pressure ulcer of left buttock, stage 3; L89.154 Pressure ulcer of sacral region, stage 4; R53.2 Functional quadriplegia; N39.0 Urinary tract infection, site not specified; Z16.12 Extended spectrum beta lactamase (ESBL) resistance; T83.518A Infection and inflammatory reaction due to other urinary catheter, initial encounter; G35 Multiple sclerosis; E11.9 Type 2 diabetes mellitus without complications; F03.90 Unspecified dementia, unspecified severity, without behavioral disturbance, psychotic disturbance, mood disturbance, and anxiety; N18.9 Chronic kidney disease, unspecified; N49.2 Inflammatory disorders of scrotum; Y83.9 Surgical procedure, unspecified as the cause of abnormal reaction of the patient, or of later complication, without mention of misadventure at the time of the procedure; B96.29 Other Escherichia coli [E. coli] as the cause of diseases classified elsewhere
CPT/HCPCS: 36415; 71045-TC-FY; 80053; 81003; 85025; 87086; 87186; 87493; 93005; 93010; 97161-GP; 99285-25; J1644

== ENCOUNTER 2024-02-14 09:17 | Inpatient (IN) | payer OTHER ==
[2024-02-14 10:04] LABS: EPI CELLS 13 /uL (0-25.1); HYALINE CASTS 4 /uL (0-3.1); URINE APPEARANCE CLOUDY; URINE BACTERIA 1585 /uL (0-1359); URINE BILIRUBIN NEGATIVE (NEGATIVE); URINE COLOR YELLOW; URINE GLUCOSE (UA) NEGATIVE (NEGATIVE); URINE KETONE NEGATIVE (NEGATIVE); URINE LEUK ESTERASE 3+ (NEGATIVE); URINE NITRITE POSITIVE (NEGATIVE); URINE PROTEIN 3+ (NEGATIVE); URINE UROBILINOGEN 0.2 mg/dL (0.2-1.0); URINE WBC 973 /uL (0-25.8)
[2024-02-14] MEDS ORDERED: MEROPENEM 1 GM in DEXTROSE 5%-WATER 100 ML IVPB ONE (10:15)
[2024-02-14 10:49] LABS: BASO % 0.6 % (0-2.0); EOS % 2.4 % (0-4.5); HEMATOCRIT 34.5 % (35.4-49); HEMOGLOBIN 11.4 GM/dL (11.7-16.9); LYMPH % 53.2 % (8-40); MCH 27.3 pg (25.7-33.7); MEAN CELL VOLUME 82.8 fl (80-96); MEAN PLT VOLUME 8.2 fl (7.5-11.1); MONO % 9.1 % (3.8-10.2); NEUT % 34.7 % (42.8-82.8); PLATELET COUNT 308 10^3/uL (134-434); RBC 4.16 M/mm3 (4.00-5.60); RDW 14.4 % (11.9-15.9); WHITE BLOOD COUNT 5.2 K/mm3 (4.0-10.0)
[2024-02-14 10:52] LABS: URINE RBC 762.3 /uL (0-23.9); YEAST NONE SEEN
[2024-02-14 11:08] LABS: POTASSIUM 3.1 mmol/L (3.5-5.1)
[2024-02-14 11:10] LABS: CALCIUM 8.7 mg/dL (8.5-10.1)
[2024-02-14 11:11] LABS: ALBUMIN 2.5 g/dl (3.4-5.0); BLOOD UREA NITROGEN 9.3 mg/dL (7-18)
[2024-02-14 11:14] LABS: CREATININE 0.6 mg/dL (0.55-1.3)
[2024-02-14 11:15] LABS: BILIRUBIN,TOTAL 0.5 mg/dL (0.2-1); TOT PROT 7.5 g/dl (6.4-8.2)
[2024-02-14 12:28] VITALS: BMI 17.4
[2024-02-14] MEDS: MEROPENEM 1 GM in DEXTROSE 5%-WATER 100 ML IVPB ONE (12:43)
[2024-02-14] MEDS ORDERED: LEPTOSPERMUM HONEY (MEDIHONEY) TP PRN (12:44)
[2024-02-14] MEDS: HEPARIN NA (PORCINE) 5,000 UNITS/ML 1ML VIAL SQ SCH (14:21)
[2024-02-14] MEDS: POLYETHYLENE GLYCOL (HEALTHYLAX) 3350 17 GM PACKET PO SCH (14:21)
[2024-02-14] MEDS: POTASSIUM CHLORIDE ORAL LIQUID 20 MEQ/15 ML PO ONE (14:21)
[2024-02-14] MEDS: VANCOMYCIN ORAL SOLUTION 125 MG/2.5 ML PO SCH (14:22)
[2024-02-14] MEDS: AMINO ACIDS/PROTEIN HYDROLYS 30 ML LIQUID.PKT PO SCH (17:27)
[2024-02-14] MEDS: MINERAL OIL/PET HY-PHL TOPICAL OINTMENT 454 GM JAR TP SCH (19:19)
[2024-02-14] MEDS: ASCORBIC ACID 500 MG TABLET (FP) PO SCH (21:44)
[2024-02-15 08:00] LABS: BASO % 1.2 % (0-2.0); EOS % 4.1 % (0-4.5); HEMATOCRIT 32.6 % (35.4-49); HEMOGLOBIN 10.8 GM/dL (11.7-16.9); LYMPH % 58.5 % (8-40); MCH 27.4 pg (25.7-33.7); MCHC 33.2 g/dl (32.0-35.9); MEAN CELL VOLUME 82.6 fl (80-96); MEAN PLT VOLUME 8.1 fl (7.5-11.1); MONO % 7.1 % (3.8-10.2); NEUT % 29.1 % (42.8-82.8); PLATELET COUNT 315 10^3/uL (134-434); RBC 3.95 M/mm3 (4.00-5.60); RDW 14.3 % (11.9-15.9); WHITE BLOOD COUNT 4.4 K/mm3 (4.0-10.0)
[2024-02-15 08:21] LABS: POTASSIUM 4.1 mmol/L (3.5-5.1)
[2024-02-15 08:27] LABS: ALBUMIN 2.4 g/dl (3.4-5.0); BLOOD UREA NITROGEN 13.7 mg/dL (7-18); CALCIUM 8.9 mg/dL (8.5-10.1)
[2024-02-15 08:30] LABS: BILIRUBIN,TOTAL 0.6 mg/dL (0.2-1); CREATININE 0.5 mg/dL (0.55-1.3); TOT PROT 7.5 g/dl (6.4-8.2)
[2024-02-15] MEDS: OXYBUTYNIN CHLORIDE 5 MG TABLET PO SCH (09:38)
[2024-02-15] MEDS: ZINC SULFATE 220 MG CAPSULE (FP) PO SCH (09:38)
[2024-02-15] MEDS: LOSARTAN POTASSIUM 25 MG TABLET PO SCH (09:38)
[2024-02-15] MEDS: VANCOMYCIN ORAL SOLUTION 125 MG/2.5 ML PO SCH (15:34)
[2024-02-16 08:32] LABS: BASO % 0.8 % (0-2.0); EOS % 2.5 % (0-4.5); HEMATOCRIT 30.9 % (35.4-49); HEMOGLOBIN 10.3 GM/dL (11.7-16.9); LYMPH % 49.5 % (8-40); MCH 27.2 pg (25.7-33.7); MCHC 33.2 g/dl (32.0-35.9); MEAN PLT VOLUME 9.4 fl (7.5-11.1); MONO % 8.8 % (3.8-10.2); NEUT % 38.4 % (42.8-82.8); PLATELET COUNT 303 10^3/uL (134-434); RBC 3.77 M/mm3 (4.00-5.60); RDW 14.3 % (11.9-15.9); WHITE BLOOD COUNT 5.7 K/mm3 (4.0-10.0)
[2024-02-16 09:01] LABS: POTASSIUM 3.7 mmol/L (3.5-5.1)
[2024-02-16 09:12] LABS: ALBUMIN 2.3 g/dl (3.4-5.0); BLOOD UREA NITROGEN 15.1 mg/dL (7-18); CALCIUM 8.3 mg/dL (8.5-10.1)
[2024-02-16 09:15] LABS: CREATININE 0.5 mg/dL (0.55-1.3)
[2024-02-16 09:17] LABS: TOT PROT 7.2 g/dl (6.4-8.2)
[2024-02-16 09:22] LABS: BILIRUBIN,TOTAL 0.4 mg/dL (0.2-1)
[2024-02-17] MEDS: PIPERACILLIN/TAZOB 3.375 GM 3.375 GM in DEXTROSE 5%-WATER - 50 ML IVPB SCH (02:39)
[2024-02-18] MEDS: PIPERACILLIN/TAZOB 3.375 GM 3.375 GM in DEXTROSE 5%-WATER - 50 ML IVPB SCH (01:56)
[2024-02-18] MEDS ORDERED: PIPERACILLIN/TAZOB 3.375 GM 3.375 GM in DEXTROSE 5%-WATER - 50 ML IVPB SCH (02:00)
[2024-02-18 08:11] LABS: BASO % 0.7 % (0-2.0); EOS % 3.7 % (0-4.5); HEMATOCRIT 31.9 % (35.4-49); HEMOGLOBIN 10.2 GM/dL (11.7-16.9); LYMPH % 52.6 % (8-40); MCH 26.8 pg (25.7-33.7); MCHC 32.1 g/dl (32.0-35.9); MEAN CELL VOLUME 83.5 fl (80-96); MEAN PLT VOLUME 9.1 fl (7.5-11.1); MONO % 7.9 % (3.8-10.2); NEUT % 35.1 % (42.8-82.8); PLATELET COUNT 236 10^3/uL (134-434); RBC 3.82 M/mm3 (4.00-5.60); RDW 13.9 % (11.9-15.9); WHITE BLOOD COUNT 5.3 K/mm3 (4.0-10.0)
[2024-02-18 08:28] LABS: POTASSIUM 3.4 mmol/L (3.5-5.1)
[2024-02-18 08:54] LABS: ALBUMIN 2.3 g/dl (3.4-5.0); CALCIUM 8.4 mg/dL (8.5-10.1)
[2024-02-18 08:55] LABS: CREATININE 0.6 mg/dL (0.55-1.3)
[2024-02-18 08:58] LABS: TOT PROT 6.9 g/dl (6.4-8.2)
[2024-02-18] MEDS: ACETAMINOPHEN 325 MG TABLET (FP) PO PRN (21:20)
[2024-02-19 18:54] VITALS: BP 125/64; PULSE 81; RESP 19; TEMP 98.2
== END 2024-02-19 20:42 | DRG 698 ==
LOC: JER 09:17 → JERBED 11:05 → J7W 11:40
PROVIDERS: ADMIT Internal Medicine; ATTEND Internal Medicine
PROC: 0T2BX0Z Change Drainage Device in Bladder, External Approach (ICD-10-PCS; principal; 2024-02-14)
DX: T83.020A Displacement of cystostomy catheter, initial encounter (principal); R53.2 Functional quadriplegia; N39.0 Urinary tract infection, site not specified; E44.0 Moderate protein-calorie malnutrition; Z68.1 Body mass index [BMI] 19.9 or less, adult; T83.511A Infection and inflammatory reaction due to indwelling urethral catheter, initial encounter; I12.9 Hypertensive chronic kidney disease with stage 1 through stage 4 chronic kidney disease, or unspecified chronic kidney disease; E11.9 Type 2 diabetes mellitus without complications; I25.10 Atherosclerotic heart disease of native coronary artery without angina pectoris; G35 Multiple sclerosis; N18.9 Chronic kidney disease, unspecified; D64.9 Anemia, unspecified; L89.150 Pressure ulcer of sacral region, unstageable; R33.9 Retention of urine, unspecified; Y83.9 Surgical procedure, unspecified as the cause of abnormal reaction of the patient, or of later complication, without mention of misadventure at the time of the procedure
CPT/HCPCS: 36415; 71045-TC-FY; 80053; 81003; 82962; 85025; 87045; 87046; 87086; 87186; 87324; 87449; 93005; 93010; 97161-GP; 99285-25; J1644

== ENCOUNTER 2024-03-19 12:57 | Inpatient (IN) | payer OTHER ==
[2024-03-19 15:24] LABS: BASO % 0.9 % (0-2.0); EOS % 1.1 % (0-4.5); HEMATOCRIT 31.2 % (35.4-49); LYMPH % 42.4 % (8-40); MCH 25.9 pg (25.7-33.7); MCHC 31.9 g/dl (32.0-35.9); MEAN CELL VOLUME 81.4 fl (80-96); MEAN PLT VOLUME 8.1 fl (7.5-11.1); MONO % 7.2 % (3.8-10.2); NEUT % 48.4 % (42.8-82.8); PLATELET COUNT 373 10^3/uL (134-434); RBC 3.84 M/mm3 (4.00-5.60); RDW 16.3 % (11.9-15.9)
[2024-03-19 15:31] LABS: INR 1.01 (0.83-1.09); PROTHROMBIN TIME (PATIENT) 11.4 SEC (9.7-13.0)
[2024-03-19 15:33] LABS: ACTIVATED PTT 28.7 SECONDS (25.2-36.5)
[2024-03-19 15:43] LABS: POTASSIUM 3.1 mmol/L (3.5-5.1)
[2024-03-19 15:45] LABS: BLOOD UREA NITROGEN 14.2 mg/dL (7-18); CALCIUM 8.8 mg/dL (8.5-10.1)
[2024-03-19 15:46] LABS: ALBUMIN 2.6 g/dl (3.4-5.0)
[2024-03-19 15:48] LABS: CREATININE 0.6 mg/dL (0.55-1.3)
[2024-03-19 15:50] LABS: BILIRUBIN,TOTAL 0.4 mg/dL (0.2-1); TOT PROT 7.7 g/dl (6.4-8.2)
[2024-03-19] MEDS ORDERED: PIPERACILLIN/TAZOB 4.5 GM 4.5 GM/100 ML BAG IVPB ONE (16:19)
[2024-03-19] MEDS: PIPERACILLIN/TAZOB 4.5 GM 4.5 GM in DEXTROSE 5%-WATER 100 ML IVPB ONE (16:27)
[2024-03-19] MEDS: LINEZOLID 600 MG PREMIX BAG 600 MG in PREMIX 300 IVPB ONE (18:06)
[2024-03-19 21:37] LABS: EPI CELLS 11 /uL (0-25.1); HYALINE CASTS 1 /uL (0-3.1); URINE APPEARANCE TURBID; URINE BILIRUBIN NEGATIVE (NEGATIVE); URINE COLOR YELLOW; URINE GLUCOSE (UA) NEGATIVE (NEGATIVE); URINE KETONE NEGATIVE (NEGATIVE); URINE LEUK ESTERASE 3+ (NEGATIVE); URINE NITRITE POSITIVE (NEGATIVE); URINE PROTEIN 3+ (NEGATIVE); URINE RBC 1432 /uL (0-23.9); URINE WBC 2937 /uL (0-25.8)
[2024-03-20] MEDS ORDERED: PIPERACILLIN/TAZOB 2.25 GM 2.25 GM in DEXTROSE 5%-WATER - 50 ML IVPB SCH (03:00)
[2024-03-20] MEDS: PIPERACILLIN/TAZOB 4.5 GM 4.5 GM in DEXTROSE 5%-WATER 100 ML IVPB SCH (04:27)
[2024-03-20 09:00] LABS: BASO % 0.8 % (0-2.0); HEMATOCRIT 30.2 % (35.4-49); HEMOGLOBIN 9.7 GM/dL (11.7-16.9); LYMPH % 33.5 % (8-40); MCH 26.1 pg (25.7-33.7); MEAN CELL VOLUME 81.6 fl (80-96); MEAN PLT VOLUME 9.3 fl (7.5-11.1); MONO % 6.5 % (3.8-10.2); NEUT % 57.2 % (42.8-82.8); PLATELET COUNT 288 10^3/uL (134-434); RDW 15.8 % (11.9-15.9); WHITE BLOOD COUNT 5.6 K/mm3 (4.0-10.0)
[2024-03-20 09:17] LABS: CHLORIDE 108 mmol/L (98-107); SODIUM 139 mmol/L (136-145)
[2024-03-20 09:20] LABS: CALCIUM 8.8 mg/dL (8.5-10.1)
[2024-03-20 09:21] LABS: BLOOD UREA NITROGEN 13.5 mg/dL (7-18); CO2 23 mmol/L (21-32); GLUCOSE,RANDOM 93 mg/dL (74-106); MAGNESIUM 2.3 mg/dL (1.8-2.4)
[2024-03-20 09:24] LABS: CREATININE 0.6 mg/dL (0.55-1.3); PHOSPHOROUS 3.6 mg/dL (2.5-4.9)
[2024-03-20 09:37] LABS: ANION GAP 8 mmol/L (4-13); POTASSIUM 2.9 mmol/L (3.5-5.1)
[2024-03-20] MEDS ORDERED: LINEZOLID 600 MG PREMIX BAG 600 MG/300 ML BAG IVPB SCH (10:00)
[2024-03-20] MEDS: LINEZOLID 600 MG PREMIX BAG 600 MG/300 ML BAG IVPB SCH (10:41)
[2024-03-20] MEDS: MULTIVITAMINS (DAILY MVI) TABLET (FP) PO SCH (10:44)
[2024-03-20] MEDS: ASCORBIC ACID 500 MG TABLET (FP) PO SCH (10:44)
[2024-03-20] MEDS: OXYBUTYNIN CHLORIDE 5 MG TABLET PO SCH (10:44)
[2024-03-20] MEDS: ZINC SULFATE 220 MG CAPSULE (FP) PO SCH (10:44)
[2024-03-20] MEDS: POTASSIUM CHLORIDE ORAL LIQUID 20 MEQ/15 ML PO ONE (11:59)
[2024-03-20] MEDS: KCL 10 MEQ IVPB 10 MEQ/100 ML INFUS.BAG IVPB SCH (12:15)
[2024-03-20] MEDS: HEPARIN NA (PORCINE) 5,000 UNITS/ML 1ML VIAL SQ SCH (13:18)
[2024-03-20] MEDS: BACITRACIN ZINC 15 GM TUBE TOPICAL OINTMENT TP SCH (15:55)
[2024-03-21] MEDS ORDERED: PIPERACILLIN/TAZOB 4.5 GM 4.5 GM in DEXTROSE 5%-WATER 100 ML IVPB SCH (02:00)
[2024-03-21] MEDS: LOSARTAN POTASSIUM 25 MG TABLET PO SCH (09:37)
[2024-03-21 11:45] LABS: EOS % 2.3 % (0-4.5); HEMATOCRIT 29.1 % (35.4-49); HEMOGLOBIN 9.3 GM/dL (11.7-16.9); LYMPH % 38.7 % (8-40); MCH 26.2 pg (25.7-33.7); MCHC 31.9 g/dl (32.0-35.9); MEAN CELL VOLUME 82.1 fl (80-96); MEAN PLT VOLUME 8.2 fl (7.5-11.1); MONO % 7.8 % (3.8-10.2); NEUT % 50.2 % (42.8-82.8); PLATELET COUNT 357 10^3/uL (134-434); RBC 3.54 M/mm3 (4.00-5.60); WHITE BLOOD COUNT 5.6 K/mm3 (4.0-10.0)
[2024-03-21 11:59] LABS: POTASSIUM 3.2 mmol/L (3.5-5.1)
[2024-03-21 12:01] LABS: CALCIUM 8.8 mg/dL (8.5-10.1)
[2024-03-21 12:02] LABS: ALBUMIN 2.5 g/dl (3.4-5.0); BLOOD UREA NITROGEN 9.7 mg/dL (7-18)
[2024-03-21 12:05] LABS: CREATININE 0.6 mg/dL (0.55-1.3)
[2024-03-21 12:06] LABS: BILIRUBIN,TOTAL 0.3 mg/dL (0.2-1)
[2024-03-21 12:07] LABS: TOT PROT 7.4 g/dl (6.4-8.2)
[2024-03-21 15:04] VITALS: BMI 19.6
[2024-03-21] MEDS: POTASSIUM CHLORIDE ORAL LIQUID 20 MEQ/15 ML PO ONE (17:17)
[2024-03-21] MEDS: KCL 10 MEQ IVPB 10 MEQ/100 ML INFUS.BAG IVPB SCH (17:18)
[2024-03-21] MEDS: AMINO ACIDS/PROTEIN HYDROLYS 30 ML LIQUID.PKT PO SCH (17:18)
[2024-03-22 09:46] LABS: BASO % 0.8 % (0-2.0); EOS % 2.4 % (0-4.5); HEMOGLOBIN 8.7 GM/dL (11.7-16.9); LYMPH % 50.6 % (8-40); MCH 26.5 pg (25.7-33.7); MCHC 32.2 g/dl (32.0-35.9); MEAN CELL VOLUME 82.3 fl (80-96); MEAN PLT VOLUME 8.4 fl (7.5-11.1); NEUT % 38.2 % (42.8-82.8); PLATELET COUNT 318 10^3/uL (134-434); RBC 3.28 M/mm3 (4.00-5.60); WHITE BLOOD COUNT 5.3 K/mm3 (4.0-10.0)
[2024-03-22 10:05] LABS: POTASSIUM 3.3 mmol/L (3.5-5.1)
[2024-03-22 10:11] LABS: ALBUMIN 2.2 g/dl (3.4-5.0); CALCIUM 8.2 mg/dL (8.5-10.1)
[2024-03-22 10:12] LABS: BLOOD UREA NITROGEN 12.4 mg/dL (7-18)
[2024-03-22 10:14] LABS: CREATININE 0.5 mg/dL (0.55-1.3)
[2024-03-22 10:16] LABS: BILIRUBIN,TOTAL 0.3 mg/dL (0.2-1)
[2024-03-22] MEDS: POTASSIUM CHLORIDE ORAL LIQUID 20 MEQ/15 ML PO ONE (18:13)
[2024-03-23 09:15] LABS: BASO % 0.7 % (0-2.0); EOS % 2.2 % (0-4.5); HEMATOCRIT 27.1 % (35.4-49); HEMOGLOBIN 8.7 GM/dL (11.7-16.9); MCH 26.5 pg (25.7-33.7); MCHC 32.1 g/dl (32.0-35.9); MEAN CELL VOLUME 82.7 fl (80-96); MEAN PLT VOLUME 7.5 fl (7.5-11.1); MONO % 6.1 % (3.8-10.2); PLATELET COUNT 326 10^3/uL (134-434); RBC 3.28 M/mm3 (4.00-5.60); RDW 16.6 % (11.9-15.9); WHITE BLOOD COUNT 5.1 K/mm3 (4.0-10.0)
[2024-03-23 09:50] LABS: POTASSIUM 3.4 mmol/L (3.5-5.1)
[2024-03-23 09:57] LABS: CALCIUM 8.6 mg/dL (8.5-10.1)
[2024-03-23 09:58] LABS: ALBUMIN 2.4 g/dl (3.4-5.0); BLOOD UREA NITROGEN 13.6 mg/dL (7-18)
[2024-03-23 09:59] LABS: BILIRUBIN,TOTAL 0.3 mg/dL (0.2-1)
[2024-03-23 10:00] LABS: TOT PROT 7.2 g/dl (6.4-8.2)
[2024-03-23 10:01] LABS: CREATININE 0.4 mg/dL (0.55-1.3)
[2024-03-23] MEDS: POTASSIUM CHLORIDE ORAL LIQUID 20 MEQ/15 ML PO ONE (12:46)
[2024-03-23] MEDS: KCL 10 MEQ IVPB 10 MEQ/100 ML INFUS.BAG IVPB SCH (18:13)
[2024-03-23] MEDS: SENNOSIDES 8.6MG TABLET (FP) PO SCH (21:20)
[2024-03-23] MEDS: DOCUSATE SODIUM 100 MG CAPSULE (FP) PO SCH (21:20)
[2024-03-24 08:50] LABS: BASO % 1.1 % (0-2.0); EOS % 3.2 % (0-4.5); HEMATOCRIT 26.5 % (35.4-49); HEMOGLOBIN 8.5 GM/dL (11.7-16.9); LYMPH % 51.9 % (8-40); MCH 26.7 pg (25.7-33.7); MEAN CELL VOLUME 83.5 fl (80-96); MEAN PLT VOLUME 8.1 fl (7.5-11.1); MONO % 6.9 % (3.8-10.2); NEUT % 36.9 % (42.8-82.8); PLATELET COUNT 338 10^3/uL (134-434); RBC 3.17 M/mm3 (4.00-5.60); RDW 16.8 % (11.9-15.9)
[2024-03-24 08:57] LABS: POTASSIUM 3.7 mmol/L (3.5-5.1)
[2024-03-24 09:00] LABS: CALCIUM 8.5 mg/dL (8.5-10.1)
[2024-03-24 09:01] LABS: ALBUMIN 2.3 g/dl (3.4-5.0); BLOOD UREA NITROGEN 14.2 mg/dL (7-18)
[2024-03-24 09:04] LABS: CREATININE 0.5 mg/dL (0.55-1.3)
[2024-03-24 09:05] LABS: BILIRUBIN,TOTAL 0.3 mg/dL (0.2-1)
[2024-03-24] MEDS: POTASSIUM CHLORIDE TABS 20 MEQ TABLET.ER (FP) PO SCH (09:15)
[2024-03-24] MEDS: POLYETHYLENE GLYCOL (HEALTHYLAX) 3350 17 GM PACKET PO SCH (17:46)
[2024-03-25 09:17] LABS: BASO % 0.8 % (0-2.0); EOS % 3.4 % (0-4.5); HEMATOCRIT 25.4 % (35.4-49); HEMOGLOBIN 8.2 GM/dL (11.7-16.9); LYMPH % 57.1 % (8-40); MCH 26.7 pg (25.7-33.7); MCHC 32.1 g/dl (32.0-35.9); MEAN CELL VOLUME 82.9 fl (80-96); NEUT % 32.7 % (42.8-82.8); RBC 3.06 M/mm3 (4.00-5.60); RDW 16.7 % (11.9-15.9); WHITE BLOOD COUNT 5.6 K/mm3 (4.0-10.0)
[2024-03-25 09:51] LABS: BLOOD UREA NITROGEN 12.3 mg/dL (7-18); CALCIUM 8.4 mg/dL (8.5-10.1)
[2024-03-25 09:53] LABS: ALBUMIN 2.3 g/dl (3.4-5.0)
[2024-03-25 09:55] LABS: BILIRUBIN,TOTAL 0.4 mg/dL (0.2-1); CREATININE 0.3 mg/dL (0.55-1.3)
[2024-03-25 09:56] LABS: TOT PROT 7.3 g/dl (6.4-8.2)
[2024-03-25 11:30] VITALS: RESP 18
[2024-03-25] MEDS: QUEtiapine FUMARATE 25 MG TABLET PO ONE (17:09)
[2024-03-26 08:16] LABS: HEMATOCRIT 26.2 % (35.4-49); HEMOGLOBIN 8.3 GM/dL (11.7-16.9); MCH 26.4 pg (25.7-33.7); MCHC 31.6 g/dl (32.0-35.9); MEAN CELL VOLUME 83.5 fl (80-96); MEAN PLT VOLUME 8.1 fl (7.5-11.1); PLATELET COUNT 290 10^3/uL (134-434); RBC 3.14 M/mm3 (4.00-5.60); RDW 16.9 % (11.9-15.9)
[2024-03-26 08:27] LABS: POTASSIUM 3.4 mmol/L (3.5-5.1)
[2024-03-26 08:30] LABS: ALBUMIN 2.3 g/dl (3.4-5.0); BLOOD UREA NITROGEN 12.9 mg/dL (7-18); CALCIUM 8.5 mg/dL (8.5-10.1)
[2024-03-26 08:33] LABS: CREATININE 0.5 mg/dL (0.55-1.3)
[2024-03-26 08:35] LABS: BILIRUBIN,TOTAL 0.4 mg/dL (0.2-1); TOT PROT 6.6 g/dl (6.4-8.2)
[2024-03-26 09:23] LABS: ANISOCYTOSIS 3+; MACROCYTOSIS 0
[2024-03-26] MEDS: POTASSIUM CHLORIDE ORAL LIQUID 20 MEQ/15 ML PO ONE (09:57)
[2024-03-26] MEDS: KCL 10 MEQ IVPB 10 MEQ/100 ML INFUS.BAG IVPB SCH (09:57)
[2024-03-26 14:20] VITALS: BP 123/72; PULSE 75; TEMP 97.6
== END 2024-03-26 20:50 | DRG 698 ==
LOC: JER 12:57 → INTOOBSV 15:49 → JERBED 15:49 → UNDOADMOB 15:49 → JERBED 22:36 → J6S 22:36 → JERBED 03-20 02:51 → OBSVTOIN 03-20 10:30 → UNDODISIN 03-26 18:18
PROVIDERS: ADMIT Internal Medicine; ATTEND Internal Medicine
DX: T83.010A Breakdown (mechanical) of cystostomy catheter, initial encounter (principal); L89.154 Pressure ulcer of sacral region, stage 4; R53.2 Functional quadriplegia; K56.7 Ileus, unspecified; N39.0 Urinary tract infection, site not specified; N31.9 Neuromuscular dysfunction of bladder, unspecified; I12.9 Hypertensive chronic kidney disease with stage 1 through stage 4 chronic kidney disease, or unspecified chronic kidney disease; E11.9 Type 2 diabetes mellitus without complications; G35 Multiple sclerosis; D64.9 Anemia, unspecified; I25.10 Atherosclerotic heart disease of native coronary artery without angina pectoris; Y83.9 Surgical procedure, unspecified as the cause of abnormal reaction of the patient, or of later complication, without mention of misadventure at the time of the procedure; N18.9 Chronic kidney disease, unspecified; E78.5 Hyperlipidemia, unspecified; K21.9 Gastro-esophageal reflux disease without esophagitis
CPT/HCPCS: 36415; 74019-TC-FY; 74021-TC-FY; 74174-TC; 76775-TC; 76856-TC; 80048; 80053; 81003; 83036; 83735; 84100; 85025; 85610; 85730; 87086; 87186; 93005; 93010; 97161-GP; 99285-25; E0186; G0378; J1644; Q9967

== ENCOUNTER 2024-04-27 20:41 | Inpatient (IN) | payer OTHER ==
[2024-04-27 23:32] LABS: EPI CELLS >36 /uL (0-25.1); HYALINE CASTS 20 /uL (0-3.1); URINE APPEARANCE TURBID; URINE BACTERIA 5850 /uL (0-1359); URINE BILIRUBIN NEGATIVE (NEGATIVE); URINE COLOR YELLOW; URINE GLUCOSE (UA) NEGATIVE (NEGATIVE); URINE KETONE NEGATIVE (NEGATIVE); URINE LEUK ESTERASE 3+ (NEGATIVE); URINE NITRITE POSITIVE (NEGATIVE); URINE PROTEIN 2+ (NEGATIVE); URINE RBC 1199 /uL (0-23.9); URINE WBC 14582 /uL (0-25.8)
[2024-04-28] MEDS ORDERED: MEROPENEM 1 GM VIAL (RESTRICTED TO ID) IVPB ONE (02:07)
[2024-04-28] MEDS ORDERED: DEXTROSE 5%-WATER 100 ML IVPB ONE (02:07)
[2024-04-28 02:11] LABS: EOS % 2.4 % (0-4.5); HEMATOCRIT 31.4 % (35.4-49); HEMOGLOBIN 10.4 GM/dL (11.7-16.9); LYMPH % 48.3 % (8-40); MCH 27.1 pg (25.7-33.7); MEAN PLT VOLUME 7.7 fl (7.5-11.1); MONO % 6.9 % (3.8-10.2); NEUT % 41.4 % (42.8-82.8); PLATELET COUNT 351 10^3/uL (134-434); RBC 3.83 M/mm3 (4.00-5.60); RDW 15.6 % (11.9-15.9); WHITE BLOOD COUNT 5.4 K/mm3 (4.0-10.0)
[2024-04-28] MEDS: MEROPENEM 1 GM in DEXTROSE 5%-WATER 100 ML IVPB ONE (02:15)
[2024-04-28 02:19] LABS: INR 0.96 (0.83-1.09); PROTHROMBIN TIME (PATIENT) 11.1 SEC (9.7-13.0)
[2024-04-28 02:22] LABS: ACTIVATED PTT 29.5 SECONDS (25.2-36.5)
[2024-04-28 02:32] LABS: ALBUMIN 2.6 g/dl (3.4-5.0); CALCIUM 8.5 mg/dL (8.5-10.1); MAGNESIUM 2.2 mg/dL (1.8-2.4)
[2024-04-28 02:35] LABS: CREATININE 0.6 mg/dL (0.55-1.3)
[2024-04-28 02:37] LABS: BILIRUBIN,TOTAL 0.3 mg/dL (0.2-1); TOT PROT 7.6 g/dl (6.4-8.2)
[2024-04-28] MEDS ORDERED: INSULIN ASPART SLIDING SCALE (NOVOLOG) 1 VIAL SQ SCH (07:00)
[2024-04-28] MEDS: LOSARTAN POTASSIUM 25 MG TABLET PO SCH (11:13)
[2024-04-28] MEDS: HEPARIN NA (PORCINE) 5,000 UNITS/ML 1ML VIAL SQ SCH (15:21)
[2024-04-28] MEDS: MEROPENEM 1 GM in DEXTROSE 5%-WATER - 50 ML IVPB SCH (16:50)
[2024-04-28] MEDS: AMINO ACIDS/PROTEIN HYDROLYS 30 ML LIQUID.PKT PO SCH (16:51)
[2024-04-28] MEDS: DAPTOMYCIN 250 MG in SODIUM CHLORIDE 50 ML IVPB ONE (17:23)
[2024-04-28] MEDS: SENNOSIDES 8.6MG TABLET (FP) PO SCH (22:43)
[2024-04-28] MEDS: ASCORBIC ACID 500 MG TABLET (FP) PO SCH (22:44)
[2024-04-28] MEDS: DOCUSATE SODIUM 100 MG CAPSULE (FP) PO SCH (22:44)
[2024-04-29 09:01] LABS: POTASSIUM 3.4 mmol/L (3.5-5.1)
[2024-04-29 09:02] LABS: CALCIUM 8.6 mg/dL (8.5-10.1)
[2024-04-29 09:03] LABS: BLOOD UREA NITROGEN 12.5 mg/dL (7-18)
[2024-04-29 09:06] LABS: CREATININE 0.5 mg/dL (0.55-1.3)
[2024-04-29 09:07] LABS: EOS % 2.4 % (0-4.5); HEMATOCRIT 31.2 % (35.4-49); LYMPH % 51.6 % (8-40); MCH 26.5 pg (25.7-33.7); MEAN CELL VOLUME 82.8 fl (80-96); MEAN PLT VOLUME 9.2 fl (7.5-11.1); MONO % 8.5 % (3.8-10.2); NEUT % 36.5 % (42.8-82.8); PLATELET COUNT 215 10^3/uL (134-434); RBC 3.77 M/mm3 (4.00-5.60); RDW 15.6 % (11.9-15.9); WHITE BLOOD COUNT 4.9 K/mm3 (4.0-10.0)
[2024-04-29] MEDS: MULTIVITAMINS (DAILY MVI) TABLET (FP) PO SCH (09:45)
[2024-04-29] MEDS: KCL 10 MEQ IVPB 10 MEQ/100 ML INFUS.BAG IVPB SCH (09:45)
[2024-04-29 12:59] VITALS: BMI 16.7
[2024-04-29] MEDS: COLLAGENASE CLOSTRIDIUM HIST. 30 GRAMS TUBE TP SCH (14:56)
[2024-04-29] MEDS: MEROPENEM 1 GM in DEXTROSE 5%-WATER 100 ML IVPB SCH (21:22)
[2024-04-29] MEDS: SODIUM CHLORIDE IVPB SCH (21:23)
[2024-04-29] MEDS: DAPTOMYCIN IVPB SCH (21:23)
[2024-04-30 07:28] LABS: BASO % 1.1 % (0-2.0); EOS % 2.6 % (0-4.5); HEMATOCRIT 30.5 % (35.4-49); HEMOGLOBIN 9.6 GM/dL (11.7-16.9); LYMPH % 44.1 % (8-40); MCH 26.6 pg (25.7-33.7); MCHC 31.6 g/dl (32.0-35.9); MEAN PLT VOLUME 9.3 fl (7.5-11.1); MONO % 6.8 % (3.8-10.2); NEUT % 45.4 % (42.8-82.8); PLATELET COUNT 246 10^3/uL (134-434); RBC 3.63 M/mm3 (4.00-5.60); RDW 14.9 % (11.9-15.9)
[2024-04-30 07:48] LABS: POTASSIUM 3.2 mmol/L (3.5-5.1)
[2024-04-30 08:00] LABS: CALCIUM 8.5 mg/dL (8.5-10.1)
[2024-04-30 08:01] LABS: ALBUMIN 2.6 g/dl (3.4-5.0); BLOOD UREA NITROGEN 19.1 mg/dL (7-18)
[2024-04-30 08:04] LABS: CREATININE 0.6 mg/dL (0.55-1.3)
[2024-04-30 08:06] LABS: BILIRUBIN,TOTAL 0.5 mg/dL (0.2-1); TOT PROT 7.7 g/dl (6.4-8.2)
[2024-05-01 11:43] LABS: EOS % 2.8 % (0-4.5); HEMATOCRIT 30.8 % (35.4-49); MCH 26.7 pg (25.7-33.7); MCHC 32.4 g/dl (32.0-35.9); MEAN CELL VOLUME 82.3 fl (80-96); MEAN PLT VOLUME 9.5 fl (7.5-11.1); MONO % 7.5 % (3.8-10.2); NEUT % 49.7 % (42.8-82.8); PLATELET COUNT 285 10^3/uL (134-434); RBC 3.74 M/mm3 (4.00-5.60)
[2024-05-01 12:06] LABS: POTASSIUM 4.9 mmol/L (3.5-5.1)
[2024-05-01 12:08] LABS: BLOOD UREA NITROGEN 15.3 mg/dL (7-18); CALCIUM 8.6 mg/dL (8.5-10.1)
[2024-05-01 12:09] LABS: ALBUMIN 2.5 g/dl (3.4-5.0)
[2024-05-01 12:12] LABS: CREATININE 0.6 mg/dL (0.55-1.3)
[2024-05-01 12:13] LABS: BILIRUBIN,TOTAL 0.4 mg/dL (0.2-1); TOT PROT 7.8 g/dl (6.4-8.2)
[2024-05-01 15:55] VITALS: RESP 18
[2024-05-01 23:50] VITALS: BP 156/91; PULSE 74; TEMP 98.8
== END 2024-05-02 01:51 | DRG 698 ==
LOC: JER 20:41 → JERBED 04-28 00:50 → J8W 04-28 03:24
PROVIDERS: ADMIT Internal Medicine; ATTEND Internal Medicine
DX: T83.510A Infection and inflammatory reaction due to cystostomy catheter, initial encounter (principal); L89.154 Pressure ulcer of sacral region, stage 4; R53.2 Functional quadriplegia; N39.0 Urinary tract infection, site not specified; I25.10 Atherosclerotic heart disease of native coronary artery without angina pectoris; G40.909 Epilepsy, unspecified, not intractable, without status epilepticus; I12.9 Hypertensive chronic kidney disease with stage 1 through stage 4 chronic kidney disease, or unspecified chronic kidney disease; E11.22 Type 2 diabetes mellitus with diabetic chronic kidney disease; N18.9 Chronic kidney disease, unspecified; F03.90 Unspecified dementia, unspecified severity, without behavioral disturbance, psychotic disturbance, mood disturbance, and anxiety; K21.9 Gastro-esophageal reflux disease without esophagitis; Y83.8 Other surgical procedures as the cause of abnormal reaction of the patient, or of later complication, without mention of misadventure at the time of the procedure; E78.5 Hyperlipidemia, unspecified; D64.9 Anemia, unspecified; E87.6 Hypokalemia; G35 Multiple sclerosis; N31.9 Neuromuscular dysfunction of bladder, unspecified
CPT/HCPCS: 0241U-QW; 36415; 76775-TC; 76856-TC; 80048; 80053; 81003; 82550; 82962; 83735; 84100; 85025; 85610; 85730; 87086; 87186; 93005; 93010; 97161-GP; 99285-25; E0186; J0878; J1644

== ENCOUNTER 2024-05-02 03:42 | Emergency (ER) | payer OTHER ==
[2024-05-02 03:59] VITALS: BP 166/89; PULSE 61; RESP 18; TEMP 98.1; BMI 17.0
== END 2024-05-02 05:44 ==
LOC: JER 03:42
DX: T83.028A Displacement of other urinary catheter, initial encounter (principal)
CPT/HCPCS: 99283-25

== ENCOUNTER 2024-07-14 19:16 | Inpatient (IN) | payer OTHER ==
[2024-07-14 20:47] VITALS: RESP 18
[2024-07-14 20:49] LABS: BASO % 1.1 % (0-2.0); EOS % 4.9 % (0-4.5); HEMOGLOBIN 10.9 GM/dL (11.7-16.9); LYMPH % 44.8 % (8-40); MCH 27.1 pg (25.7-33.7); MCHC 32.9 g/dl (32.0-35.9); MEAN CELL VOLUME 82.6 fl (80-96); MEAN PLT VOLUME 8.7 fl (7.5-11.1); MONO % 7.6 % (3.8-10.2); NEUT % 41.6 % (42.8-82.8); PLATELET COUNT 402 10^3/uL (134-434); RDW 16.3 % (11.9-15.9); WHITE BLOOD COUNT 5.7 K/mm3 (4.0-10.0)
[2024-07-14] MEDS ORDERED: MEROPENEM 1 GM VIAL (RESTRICTED TO ID) IVPB ONE (21:49)
[2024-07-14] MEDS ORDERED: ACETAMINOPHEN INJECTION 100 ML ONE (21:50)
[2024-07-14] MEDS ORDERED: VANCOMYCIN 1 GRAM (PRE-DOCKED) 1,000 MG/250 ML BAG IVPB ONE (21:50)
[2024-07-14 22:00] LABS: PROTHROMBIN TIME (PATIENT) 11.5 SEC (9.7-13.0)
[2024-07-14 22:03] LABS: ACTIVATED PTT 27.4 SECONDS (25.2-36.5)
[2024-07-14 22:06] LABS: ALBUMIN 2.8 g/dl (3.4-5.0); CALCIUM 9.2 mg/dL (8.5-10.1); MAGNESIUM 2.2 mg/dL (1.8-2.4)
[2024-07-14 22:10] LABS: CREATININE 0.7 mg/dL (0.55-1.3)
[2024-07-14 22:11] LABS: BILIRUBIN,TOTAL 0.5 mg/dL (0.2-1); TOT PROT 8.2 g/dl (6.4-8.2)
[2024-07-14] MEDS: ACETAMINOPHEN 1000 MG/100 ML BAG IVPB ONE (22:21)
[2024-07-14] MEDS: LACTATED RINGERS SOLUTION 1000 ML INFUS.BAG IV ONE (22:21)
[2024-07-14 22:25] LABS: VENOUS BASE EXCESS -0.4 mmol/L (-2-2); VENOUS O2 SATURATION 42.4 % (70-80); VENOUS PCO2 43.1 mmHg (38-52); VENOUS PH 7.379 (7.310-7.410)
[2024-07-14 22:35] LABS: EPI CELLS 13 /uL (0-25.1); HYALINE CASTS 0 /uL (0-3.1); PH,URINE 5.5 (5.0-8.0); URINE APPEARANCE TURBID; URINE BACTERIA >9,000 /uL (0-1359); URINE BILIRUBIN NEGATIVE (NEGATIVE); URINE COLOR YELLOW; URINE GLUCOSE (UA) NEGATIVE (NEGATIVE); URINE KETONE NEGATIVE (NEGATIVE); URINE LEUK ESTERASE 3+ (NEGATIVE); URINE NITRITE POSITIVE (NEGATIVE); URINE PROTEIN 3+ (NEGATIVE); URINE RBC 2074 /uL (0-23.9); URINE WBC 8166 /uL (0-25.8)
[2024-07-14] MEDS: MEROPENEM 2 GM in SODIUM CHLORIDE 100 ML IVPB ONE (22:48)
[2024-07-14] MEDS: VANCOMYCIN 1,000 MG in DEXTROSE 5%-WATER - 250 ML IVPB ONE (23:05)
[2024-07-15 03:32] VITALS: BMI 16.5
[2024-07-15] MEDS ORDERED: levETIRAcetam 500 MG TABLET (FP) PO SCH (10:00)
[2024-07-15] MEDS: HEPARIN NA (PORCINE) 5,000 UNITS/ML 1ML VIAL SQ SCH (11:07)
[2024-07-15] MEDS: MEROPENEM 1 GM in DEXTROSE 5%-WATER 100 ML IVPB SCH ×2 (11:07→17:13)
[2024-07-15] MEDS: MULTIVITAMINS (DAILY MVI) TABLET (FP) PO SCH (11:08)
[2024-07-15] MEDS: ASCORBIC ACID 500 MG TABLET (FP) PO SCH (11:08)
[2024-07-15] MEDS: FERROUS SO4 325 MG TABLET (FP) PO SCH (11:08)
[2024-07-15] MEDS: LOSARTAN POTASSIUM 25 MG TABLET PO SCH (11:08)
[2024-07-15 11:44] LABS: EOS % 5.1 % (0-4.5); HEMATOCRIT 30.1 % (35.4-49); LYMPH % 31.6 % (8-40); MCH 27.3 pg (25.7-33.7); MCHC 33.1 g/dl (32.0-35.9); MEAN CELL VOLUME 82.5 fl (80-96); MEAN PLT VOLUME 9.8 fl (7.5-11.1); MONO % 8.8 % (3.8-10.2); NEUT % 53.5 % (42.8-82.8); PLATELET COUNT 217 10^3/uL (134-434); RBC 3.65 M/mm3 (4.00-5.60); RDW 16.3 % (11.9-15.9); WHITE BLOOD COUNT 6.1 K/mm3 (4.0-10.0)
[2024-07-15 12:07] LABS: POTASSIUM 3.2 mmol/L (3.5-5.1)
[2024-07-15 12:11] LABS: CALCIUM 9.1 mg/dL (8.5-10.1)
[2024-07-15 12:15] LABS: CREATININE 0.6 mg/dL (0.55-1.3)
[2024-07-15] MEDS: AMINO ACIDS/PROTEIN HYDROLYS 30 ML LIQUID.PKT PO SCH (17:55)
[2024-07-15] MEDS: POTASSIUM CHLORIDE ORAL LIQUID 20 MEQ/15 ML PO ONE (17:55)
[2024-07-16 08:34] LABS: HEMATOCRIT 29.1 % (35.4-49); HEMOGLOBIN 9.7 GM/dL (11.7-16.9); MCH 27.4 pg (25.7-33.7); MCHC 33.2 g/dl (32.0-35.9); MEAN CELL VOLUME 82.3 fl (80-96); MEAN PLT VOLUME 9.4 fl (7.5-11.1); PLATELET COUNT 232 10^3/uL (134-434); RBC 3.53 M/mm3 (4.00-5.60); RDW 16.2 % (11.9-15.9)
[2024-07-16 08:48] LABS: POTASSIUM 3.8 mmol/L (3.5-5.1)
[2024-07-16 08:57] LABS: BLOOD UREA NITROGEN 14.6 mg/dL (7-18); CALCIUM 8.4 mg/dL (8.5-10.1); MAGNESIUM 1.9 mg/dL (1.8-2.4)
[2024-07-16 09:00] LABS: CREATININE 0.6 mg/dL (0.55-1.3)
[2024-07-16] MEDS ORDERED: MEROPENEM 1 GM in DEXTROSE 5%-WATER 100 ML IVPB SCH (10:00)
[2024-07-16] MEDS: ACETAMINOPHEN 325 MG TABLET (FP) PO PRN (23:07)
[2024-07-18 08:40] VITALS: BP 152/88; PULSE 66; TEMP 98.2
[2024-07-18] MEDS ORDERED: MEROPENEM 1 GM VIAL (RESTRICTED TO ID) IVPB ONE (09:35)
== END 2024-07-18 13:04 | DRG 698 ==
LOC: JER 19:16 → JERBED 07-15 00:06 → J6W 07-15 02:11
PROVIDERS: ADMIT Internal Medicine; ATTEND Internal Medicine
DX: T83.510A Infection and inflammatory reaction due to cystostomy catheter, initial encounter (principal); L89.154 Pressure ulcer of sacral region, stage 4; R53.2 Functional quadriplegia; N39.0 Urinary tract infection, site not specified; R64 Cachexia; Z68.1 Body mass index [BMI] 19.9 or less, adult; I12.9 Hypertensive chronic kidney disease with stage 1 through stage 4 chronic kidney disease, or unspecified chronic kidney disease; E11.22 Type 2 diabetes mellitus with diabetic chronic kidney disease; N18.9 Chronic kidney disease, unspecified; I25.10 Atherosclerotic heart disease of native coronary artery without angina pectoris; G40.909 Epilepsy, unspecified, not intractable, without status epilepticus; G35 Multiple sclerosis; K21.9 Gastro-esophageal reflux disease without esophagitis; K59.00 Constipation, unspecified; F03.90 Unspecified dementia, unspecified severity, without behavioral disturbance, psychotic disturbance, mood disturbance, and anxiety; N31.9 Neuromuscular dysfunction of bladder, unspecified; H54.8 Legal blindness, as defined in USA; R13.10 Dysphagia, unspecified; Y84.8 Other medical procedures as the cause of abnormal reaction of the patient, or of later complication, without mention of misadventure at the time of the procedure; Y92.9 Unspecified place or not applicable
CPT/HCPCS: 0241U-QW; 36415; 71045-TC-FY; 74230-TC-FY; 80048; 80053; 81003; 82803; 83605; 83735; 84484; 85025; 85027; 85610; 85730; 86850; 86900; 86901; 87040; 87086; 87186; 92611-GN; 93005; 93010; 99285-25; E0186; J0131; J1644